=== PATIENT | female | born 1965 | race Hispanic/Latino ===

== ENCOUNTER 2017-06-10 04:30 | Inpatient (IN) | payer BC ==
--- NOTE | 2017-06-10 04:45 | ED PDOC ---
Arrival/HPI - General Time Seen by Provider: 06/10/17 04:31 Historian: Patient - History of Present Illness Narrative History of Present Illness (Text): 06/10/17 04:41 Courtney Schmidt is a 52 year old female, whose past medical history includes gastritis and small bowel obstruction, who presents to the emergency department complaining of abdominal pain and vomiting for 24 hours. Patient notes she has experienced these symptoms for a couple of years. Patient denies any fever, chills, chest pain, shortness of breath, diarrhea, back pain, neck pain, headache, dizziness, or any other complaints. Time/Duration: 24 hours Symptom Onset: Gradual Symptom Course: Unchanged Activities at Onset: Light Context: Home Past Medical History - Provider Review Nursing Documentation Reviewed: Yes - Tetanus Immunization Tetanus Immunization: Unknown - Cardiac Hx Cardiac Disorders: No Hx Pacemaker: No - Pulmonary Hx Asthma: Yes - Neurological Hx Paralysis: No - HEENT Other/Comment: pt communicates by writing on paper, impaired speech, pt uses a ttd phone to communicate - Hematological/Oncological Hx Blood Transfusions: No Hx Blood Transfusion Reaction: No - Musculoskeletal/Rheumatological Hx Musculoskeletal Disorders: Yes (CEREBRAL PALSY) - Gastrointestinal Hx Gastrointestinal Disorders: Yes Hx Gastroesophageal Reflux: Yes - Psychiatric Hx Emotional Abuse: No Hx Physical Abuse: No Hx Substance Use: No - Surgical History Other/Comment: abdominal - Anesthesia Hx Anesthesia Reactions: No Hx Malignant Hyperthermia: No - Suicidal Assessment Feels Threatened In Home Enviroment: No Family/Social History - Physician Review Nursing Documentation Reviewed: Yes Family/Social History: Unknown Family HX Smoking Status: Never Smoked Hx Alcohol Use: No Hx Substance Use: No Hx Substance Use Treatment: No Allergies/Home Meds Allergies/Adverse Reactions: Allergies omeprazole Adverse Reaction (Verified 06/10/17 05:06) SHORTNESS OF BREATH PT REPORTS HEADACHE AND SOB PT TAKES THIS DAILY Home Medications: Home Meds Medication Instructions Recorded Confirmed Multivitamin [Multi Vitamins] 1 tab PO DAILY 12/26/11 06/10/17 Ipratropium 0.02% [Ipratropium 0.5 mg IH PRN PRN 07/20/15 06/10/17 Flushing 2.5 Ml] Ranitidine HCl [Zantac 150] 150 mg PO BID 07/20/15 06/10/17 Review of Systems - Physician Review All systems were reviewed & negative as marked: Yes - Review of Systems Constitutional: Normal Eyes: Normal ENT: Normal Respiratory: Normal. absent: SOB, Cough Cardiovascular: Normal. absent: Chest Pain Gastrointestinal: Abdominal Pain, Vomiting. absent: Diarrhea Genitourinary Female: Normal. absent: Dysuria, Frequency, Hematuria, Urine Output Changes Musculoskeletal: Normal. absent: Back Pain, Neck Pain Skin: Normal. absent: Rash Neurological: Normal Endocrine: Normal Hemo/Lymphatic: Normal Psychiatric: Normal Physical Exam Vital Signs Temp Pulse Resp BP Pulse Ox 06/10/17 11:30 85 18 118/70 98 06/10/17 09:45 88 18 111/67 97 06/10/17 07:30 94 H 18 118/72 97 06/10/17 05:00 97.9 F 93 H 88 H 110/77 97 - Systems Exam Head: Present: Atraumatic, Normocephalic Pupils: Present: PERRL Extroacular Muscles: Present: EOMI Conjunctiva: Present: Normal Mouth: Present: Moist Mucous Membranes Neck: Present: Normal Range of Motion Respiratory/Chest: Present: Clear to Auscultation, Good Air Exchange. No: Respiratory Distress, Accessory Muscle Use Cardiovascular: Present: Regular Rate and Rhythm, Normal S1, S2. No: Murmurs Abdomen: Present: Tenderness (all quadrants). No: Peritoneal Signs Back: Present: Normal Inspection Upper Extremity: Present: Normal Inspection. No: Cyanosis, Edema Lower Extremity: Present: Normal Inspection. No: Edema Neurological: Present: GCS=15, CN II-XII Intact, Speech Normal Skin: Present: Warm, Dry, Normal Color. No: Rashes Psychiatric: Present: Alert, Oriented x 3, Normal Insight, Normal Concentration Medical Decision Making ED Course and Treatment: 06/10/17 04:45 Impression: 51 year old female presents to the emergency department complaining of abdominal pain and vomiting for 24 hours. Plan: -- EKG -- CT Abd/Pelvis -- Labs -- Blood Culture -- Urine Culture -- Urinalysis -- Lipase -- Amylase -- Cardiac Enzymes -- Reassess and disposition Prior Visits: Notes and results from previous visits were reviewed. Patient was last seen in the emergency department on 09/18/15 for nausea and vomiting for two days. Patient was discharged. Progress Notes: - Lab Interpretations Microbiology Results: Microbiology Results 06/10/17 05:30 Blood-Venous Blood Culture - Preliminary NO GROWTH AFTER 3 DAYS 06/10/17 05:00 Blood-Venous Blood Culture - Preliminary NO GROWTH AFTER 3 DAYS 06/10/17 10:30 Urine,Clean Catch Urine Culture - Final No Growth (<1,000 CFU/ML) Lab Results: 06/10/17 04:45 06/10/17 04:45 Lab Results 06/10/17 09:30: Urine Color Yellow, Urine Appearance Clear, Urine pH 7.5, Ur Specific [place] 1.015, Urine Protein Negative, Urine Glucose (UA) Negative, Urine Ketones Trace H, Urine Blood Negative, Urine Nitrate Negative, Urine Bilirubin Negative, Urine Urobilinogen 0.2, Ur Leukocyte Esterase Negative 06/10/17 07:49: pO2 235 H, VBG pH 7.42, VBG pCO2 46.0, VBG HCO3 29.8 H, VBG Total CO2 31.2 H, VBG O2 Sat (Calc) 100.0 H, VBG Base Excess 4.5 H, VBG Potassium 3.7, Glucose 114 H, Lactate 0.9, FiO2 21.0, Sodium 138.0, Chloride 107.0, Venous Blood Potassium 3.7 06/10/17 04:45: Sodium 142, Potassium 4.0, Chloride 103, Carbon Dioxide 27, Anion Gap 16, BUN 17, Creatinine 0.5 L, Est GFR ( Amer) > 60, Est GFR ( Non-Af Amer) > 60, Random Glucose 138 H, Calcium 10.1, Total Bilirubin 0.4, AST 31, ALT 34, Alkaline Phosphatase 133 H, Lactate Dehydrogenase 493, Total Creatine Kinase 56, Troponin I < 0.01, Total Protein 8.0, Albumin 4.6, Globulin 3.4, Albumin/Globulin Ratio 1.4, Amylase 82, Lipase 309 H 06/10/17 04:45: PT 11.0, INR 0.97, APTT 28.1 06/10/17 04:45: WBC 14.0 H D, RBC 4.92, Hgb 15.8, Hct 46.5, MCV 94.5, MCH 32.1, MCHC 34.0, RDW 12.4, Plt Count 274, MPV 10.5, Gran % 92.5 H, Lymph % (Auto) 5.1 L, [place] % (Auto) 2.0, Eos % (Auto) 0.1 L, Baso % (Auto) 0.3, Gran # 12.94 H, Lymph # (Auto) 0.7 L, [place] # (Auto) 0.3, Eos # (Auto) 0.0, Baso # (Auto) 0.04, Neutrophils % (Manual) 88 H, Band Neutrophils % 2, Lymphocytes % (Manual) 9 L, Monocytes % (Manual) TEST NOT PERFORMED, Basophils % (Manual) 1, Platelet Evaluation Normal - RAD Interpretation Radiology Orders: 06/10/17 04:43 ABD & PELVIS W/O PO OR IV CONT [CT] Stat - Medication Orders Current Medication Orders: Albuterol/Ipratropium (Duoneb 3 Mg/0.5 Mg (3 Ml) Ud) 3 ml IH Q6H PRN PRN Reason: Shortness of Breath Bisacodyl (Dulcolax) 10 mg RC BID PRN PRN Reason: Constipation Heparin Sodium (Porcine) (Heparin) 5,000 units SC Q12 [facility] PRN Reason: Protocol Last Admin: 06/13/17 10:55 Dose: 5,000 units Subcutaneous Administrations Document 06/13/17 10:55 MCV (Rec: 06/13/17 10:55 MCV [facility]-[id number]) Charges for Administration # of Subcutaneous Administrations 1 Magnesium Hydroxide (Milk Of Magnesia) 30 ml PO DAILY PRN PRN Reason: Constipation Ondansetron HCl (Zofran Inj) 4 mg IVP Q4 PRN PRN Reason: Nausea/Vomiting Last Admin: 06/10/17 14:39 Dose: 4 mg IVP Administration Document 06/10/17 14:39 Y (Rec: 06/10/17 14:39 [id number] Charges for Administration # of IVP Administrations 1 Pantoprazole Sodium (Protonix Ec Tab) 20 mg PO 0600 [facility] Polyethylene Glycol (Miralax) 17 gm PO BID [facility] Last Admin: 06/13/17 10:55 Dose: 17 gm Discontinued Medications Famotidine (Pepcid) 40 mg IVP DAILY [facility] Last Admin: 06/11/17 09:26 Dose: Famotidine (Pepcid) 20 mg PO 1000,2200 [facility] Last Admin: 06/11/17 21:17 Dose: 20 mg Sodium Chloride (Sodium Chloride 0.9%) 1,000 mls @ 80 mls/hr IV .[id number] [facility] Last Admin: 06/10/17 04:59 Dose: 80 mls/hr eMAR Start Stop Document 06/10/17 04:59 JOL (Rec: 06/10/17 04:59 JOL [id number]) Intravenous Solution Start Date 06/10/17 Start Time 04:59 Sodium Chloride (Sodium Chloride 0.9%) 1,000 mls @ 120 mls/hr IV .[id number] [facility] Last Admin: 06/11/17 09:50 Dose: 120 mls/hr eMAR Start Stop Document 06/11/17 09:50 EP (Rec: 06/11/17 09:50 EP [facility]-[id number]) Intravenous Solution Start Date 06/11/17 Start Time 09:50 Ampicillin Sodium/Sulbactam (Sodium 3 gm/ Sodium Chloride) 100 mls @ 200 mls/ hr IVPB Q6 [facility] PRN Reason: Protocol Last Admin: 06/11/17 05:24 Dose: 200 mls/hr eMAR Start Stop Document 06/11/17 05:24 [employer]ER[employer] (Rec: 06/11/17 05:24 CREATIVE [employer]S THERAPIST [id number]) Intravenous Solution Start Date 06/11/17 Start Time 05:24 End Date 06/11/17 Ketorolac Tromethamine (Toradol) 15 mg IVP Q6H PRN PRN Reason: Pain, moderate (4-7) Last Admin: 06/10/17 14:15 Dose: 15 mg [facility] Pain Assessment Document 06/10/17 14:15 Y (Rec: 06/10/17 14:15 [id number]) Pain Reassessment Is this a pain reassessment? No Sleep Is patient sleeping during reassessment? No Presence of Pain Presence of Pain Yes Pain Scale Used Pain Scale Used Numeric Location Pain Location Body Site Abdomen Description Intensity of Pain at present 10 IVP Administration Document 06/10/17 14:15 Y (Rec: 06/10/17 14:15 [id number]) Charges for Administration # of IVP Administrations 1 Re-Assess: ROBERT Pain Assessment Document 06/10/17 15:15 Y (Rec: 06/10/17 20:59 [id number] Pain Reassessment Is this a pain reassessment? Yes Sleep Is patient sleeping during reassessment? Yes Magnesium Citrate (Citrate Of Mag) 300 ml PO ONCE ONE Stop: 06/12/17 07:05 Last Admin: 06/12/17 08:34 Dose: 300 ml Magnesium Citrate (Citrate Of Mag) 300 ml PO ONCE ONE Stop: 06/13/17 10:01 Last Admin: 06/13/17 10:55 Dose: Not Given Non-Admin Reason: Patient Refused Morphine Sulfate (Morphine) 2 mg IVP STAT STA Stop: 06/10/17 04:49 Last Admin: 06/10/17 04:59 Dose: 2 mg MAR Pain Assessment Document 06/10/17 04:59 JOL (Rec: 06/10/17 05:00 JOL [id number]) Pain Reassessment Is this a pain reassessment? No Sleep Is patient sleeping during reassessment? No Presence of Pain Presence of Pain Yes Pain Scale Used Pain Scale Used Numeric Location Pain Location Body Site Abdomen Description Intensity of Pain at present 8 Pain Behavior Irritability Restlessness Facial Grimacing Aggravating Factors ADL's Changing Position IVP Administration Document 06/10/17 04:59 JOL (Rec: 06/10/17 05:00 JOL [id number]) Charges for Administration # of IVP Administrations 1 Morphine Sulfate (Morphine) 4 mg IVP STAT STA Stop: 06/10/17 07:50 Last Admin: 06/10/17 08:03 Dose: 4 mg MAR Pain Assessment Document 06/10/17 08:03 [facility] (Rec: 06/10/17 08:03 [facility] [id number]) Pain Reassessment Is this a pain reassessment? Yes Sleep Is patient sleeping during reassessment? No Presence of Pain Presence of Pain Yes Pain Scale Used Pain Scale Used Numeric Location Pain Location Body Site Abdomen Description Description Constant Intensity of Pain at present 6 Pain Behavior Irritability Aggravating Factors None Alleviating Factors/Management Medication Techniques Alleviating Factors Medication IVP Administration Document 06/10/17 08:03 [facility] (Rec: 06/10/17 08:03 [facility] [id number]) Charges for Administration # of IVP Administrations 1 Ondansetron HCl (Zofran Inj) 4 mg IVP STAT STA Stop: 06/10/17 04:49 Last Admin: 06/10/17 04:59 Dose: 4 mg IVP Administration Document 06/10/17 04:59 JOL (Rec: 06/10/17 04:59 JOL [id number]) Charges for Administration # of IVP Administrations 1 Ondansetron HCl (Zofran Inj) 4 mg IVP STAT STA Stop: 06/10/17 11:17 Last Admin: 06/10/17 11:33 Dose: 4 mg IVP Administration Document 06/10/17 11:33 [facility] (Rec: 06/10/17 11:33 [facility] [id number]) Charges for Administration # of IVP Administrations 1 Pantoprazole Sodium (Protonix Ec Tab) 40 mg PO 0600 [facility] Last Admin: 06/13/17 06:15 Dose: 40 mg Polyethylene Glycol (Miralax) 17 gm PO BID [facility] Last Admin: 06/10/17 12:13 Dose: - Transfer of Care Patient signed out to Dr:: marcel ct scan and dispo - Scribe Statement The provider has reviewed the documentation as recorded by the Scribe Documented by Anaya Hurtado acting as a scribe for Luis Miguel Perez MD. Disposition/Present on Arrival - Present on Arrival Any Indicators Present on Arrival: No History of DVT/PE: No History of Uncontrolled Diabetes: No Urinary Catheter: No History Surgical Site Infection Following: None - Disposition Have Diagnosis and Disposition been Completed?: Yes Diagnosis: Small bowel obstruction, Nausea & vomiting, Abdominal pain Disposition: HOSPITALIZED Disposition Time: 07:00 Patient Problems: Current Active Problems Problem Status Onset Abdominal pain Acute Nausea & vomiting Acute Small bowel obstruction Acute Condition: GOOD
[2017-06-10] MEDS ORDERED: Morphine 2 mg/ml ISec IVP STA (04:48)
[2017-06-10] MEDS ORDERED: Sodium Chloride 0.9% 1,000 ML IV SCH (05:00)
[2017-06-10 05:09] LABS: BASO # 0.04 K/mm3 (0.0-2.0); BASO % 0.3 % (0.0-3.0); EOS % 0.1 % (1.5-5.0); GRAN # 12.94 (1.4-6.5); GRAN % 92.5 % (50.0-68.0); HEMOGLOBIN 15.8 g/dL (12.0-16.0); LYMPH # 0.7 (1.2-3.4); LYMPH % 5.1 % (22.0-35.0); MEAN CELL VOLUME 94.5 fl (80.0-105.0); MEAN CORPUSCULAR HEMOGLOBIN 32.1 pg (25.0-35.0); MEAN PLATELET VOLUME 10.5 fl (7.0-11.0); MONO # 0.3 (0.1-0.6); PLATELET COUNT 274 10^3/uL (120.0-450.0); RBC 4.92 10^6/uL (3.5-6.1); RED CELL DISTRIBUTION WIDTH 12.4 % (11.5-14.5)
[2017-06-10 05:16] LABS: ALB/GLOB RATIO 1.4 (1.1-1.8); ALBUMIN 4.6 g/dL (3.0-4.8); ALT/SGPT 34 U/L (7-56); AMYLASE 82 U/L (35-125); AST/SGOT 31 U/L (14-36); BLOOD UREA NITROGEN 17 mg/dL (7-21); CALCIUM 10.1 mg/dL (8.4-10.5); GFR AFRICAN-AMERICAN > 60; GFR NON-AFRICAN AMERICAN > 60; LIPASE 309 U/L (23-300)
[2017-06-10 05:18] LABS: INR 0.97 (0.93-1.08); PARTIAL THROMBOPLASTIN TIME 28.1 Seconds (25.1-36.5)
[2017-06-10 05:26] LABS: TROPONIN I < 0.01 ng/mL
[2017-06-10 06:47] LABS: BAND 2 % (0-2); BASOPHIL 1 % (0.0-1.0); LYMPHOCYTE 9 % (22.0-35.0); NEUTROPHIL 88 % (50.0-70.0); PLATELET ESTIMATE NORMAL (NORMAL)
--- NOTE | 2017-06-10 07:23 | ED PDOC ---
Physical Exam Vital Signs Reviewed: Yes Vital Signs Temp Pulse Resp BP Pulse Ox 06/10/17 09:45 88 18 111/67 97 06/10/17 07:30 94 H 18 118/72 97 06/10/17 05:00 97.9 F 93 H 88 H 110/77 97 Temperature: Afebrile Blood Pressure: Normal Pulse: Regular Respiratory Rate: Normal Appearance: Positive for: Well-Appearing Pain Distress: None Mental Status: Positive for: Alert and Oriented X 3 - Systems Exam Head: Present: Atraumatic, Normocephalic Pupils: Present: Other (disconjugate gaze; no photophobia, sclera anicteric, no nystagmus) Extroacular Muscles: Present: EOMI Conjunctiva: Present: Normal Ears: Present: Normal Mouth: Present: Other (mild dry oral mucosa, fair dentitions, no drooling/ stridor) Pharnyx: Present: Normal Nose (External): Present: Atraumatic Nose (Internal): Present: Normal Inspection Neck: Present: Normal Range of Motion, Trachea Midline. No: MIDLINE TENDERNESS Respiratory/Chest: Present: Clear to Auscultation, Good Air Exchange Cardiovascular: Present: Regular Rate and Rhythm, Normal S1, S2. No: Murmurs Abdomen: Present: Normal Bowel Sounds, Other (mild decr BS; + diffuse mid abd tenderness, no masses/rebound/guarding/rigidity, no portillo's sign, no mcburney' s point tenderness) Back: Present: Normal Inspection. No: Midline Tenderness Upper Extremity: Present: Normal Inspection, Normal ROM, NORMAL PULSES, Neurovascularly Intact, Capillary Refill < 2s Lower Extremity: Present: Normal Inspection, NORMAL PULSES, Normal ROM, Neurovascularly Intact, Capillary Refill < 2 s Neurological: Present: GCS=15, CN II-XII Intact, Speech Normal Skin: Present: Warm, Normal Color, Other (cap refill ~ 1 sec, no ulcerations, no petechiae) Psychiatric: Present: Alert, Oriented x 3 Medical Decision Making ED Course and Treatment: 06/10/17 07:19 Patient has been endorsed to me by Dr. Perez. Patient currently awaiting Abd/ Pelvis CT results and will be dispositioned accordingly. 06/10/2017 08:16 Abd/Pelvis CT IMPRESSION: Distal small bowel obstruction. Fluid-filled loops of distended small bowel with mesenteric edema. Bowel ischemia is not excluded. Dictator: Jess Saunders MD 06/10/17 08:[address] Jorge, surgical consult, who has been made aware of patient's medical condition and will evaluate patient at bedside. 06/10/17 11:19 Dr rajput team evaluated patient, agrees with admission, would like medicine team to admit patient I spoke to Dr Guillory, hospitalists plumbing and heating contractor, made aware, agrees with admission pt is made aware of her medical results pt agrees with admission Re-evaluation Time: 11:22 Reassessment Condition: Improving,but remains with symptoms - Lab Interpretations Lab Results: 06/10/17 04:45 06/10/17 04:45 Lab Results 06/10/17 09:30: Urine Color Yellow, Urine Appearance Clear, Urine pH 7.5, Ur Specific [place] 1.015, Urine Protein Negative, Urine Glucose (UA) Negative, Urine Ketones Trace H, Urine Blood Negative, Urine Nitrate Negative, Urine Bilirubin Negative, Urine Urobilinogen 0.2, Ur Leukocyte Esterase Negative 06/10/17 07:49: pO2 235 H, VBG pH 7.42, VBG pCO2 46.0, VBG HCO3 29.8 H, VBG Total CO2 31.2 H, VBG O2 Sat (Calc) 100.0 H, VBG Base Excess 4.5 H, VBG Potassium 3.7, Glucose 114 H, Lactate 0.9, FiO2 21.0, Sodium 138.0, Chloride 107.0, Venous Blood Potassium 3.7 06/10/17 04:45: Sodium 142, Potassium 4.0, Chloride 103, Carbon Dioxide 27, Anion Gap 16, BUN 17, Creatinine 0.5 L, Est GFR ( Amer) > 60, Est GFR ( Non-Af Amer) > 60, Random Glucose 138 H, Calcium 10.1, Total Bilirubin 0.4, AST 31, ALT 34, Alkaline Phosphatase 133 H, Lactate Dehydrogenase 493, Total Creatine Kinase 56, Troponin I < 0.01, Total Protein 8.0, Albumin 4.6, Globulin 3.4, Albumin/Globulin Ratio 1.4, Amylase 82, Lipase 309 H 06/10/17 04:45: PT 11.0, INR 0.97, APTT 28.1 06/10/17 04:45: WBC 14.0 H D, RBC 4.92, Hgb 15.8, Hct 46.5, MCV 94.5, MCH 32.1, MCHC 34.0, RDW 12.4, Plt Count 274, MPV 10.5, Gran % 92.5 H, Lymph % (Auto) 5.1 L, [place] % (Auto) 2.0, Eos % (Auto) 0.1 L, Baso % (Auto) 0.3, Gran # 12.94 H, Lymph # (Auto) 0.7 L, [place] # (Auto) 0.3, Eos # (Auto) 0.0, Baso # (Auto) 0.04, Neutrophils % (Manual) 88 H, Band Neutrophils % 2, Lymphocytes % (Manual) 9 L, Monocytes % (Manual) TEST NOT PERFORMED, Basophils % (Manual) 1, Platelet Evaluation Normal I have reviewed the lab results: Yes Interpretation: Abnormal lab values (mildly elevated WBCS, lipase) - RAD Interpretation Narrative RAD Interpretations (Text): 06/10/17 11:22 CT Scan ABD PELVIS W/O PO OR IV CONT Exam Date: 06/10/17 This imaging exam was performed at [facility] (Formerly [facility])[3] ADDENDUM Addendum created by Jess Saunders MD on 06/10/2017 8:34:29 AM EDT THIS REPORT CONTAINS FINDINGS THAT MAY BE CRITICAL TO PATIENT CARE. The findings were verbally communicaated via telephone conference with Dr Govea at 8:26 AM EDT on 06/10/2017. The findings were acknowledged and understood. Additional history was provided. Patient has recurrent small bowel obstructions. Prior surgical history is unknown. Question possibility of closed loop obstruction. Surgical consult is recommended. Right lower lobe ground glass infiltrate. Possible pneumonia. The patient has elevated pancreatic enzymes. The pancreas is diffusely prominent compared to the prior study allowing for lack of intravenous contrast. No significant peripancreatic inflammatory stranding is noted. Possible mild pancreatitis. Initial report created on 06/10/2017 8:16:19 AM EDT EXAM: CT Abdomen and Pelvis Without Intravenous Contrast CLINICAL HISTORY: 51 years old, female; Pain; Abdominal pain; Generalized; Additional info: Abd pain TECHNIQUE: Axial computed tomography images of the abdomen and pelvis without intravenous contrast. All CT scans at this facility use one or more dose reduction techniques, viz.: automated exposure control; ma/kV adjustment per patient size (including targeted exams where dose is matched to indication; i.e. head); or iterative reconstruction technique. Coronal and sagittal reformatted images were created and reviewed. COMPARISON: CT - ABD PELVIS IV CONTRAST ONLY 2015-09-17 18:43 FINDINGS: Lower thorax: No acute findings. ABDOMEN: Liver: The liver is within normal limits for this noncontrast study. Gallbladder and bile ducts: Unremarkable. No calcified stones. No ductal dilation. Pancreas: Unremarkable. No ductal dilation. Spleen: Unremarkable. No splenomegaly. Adrenals: Unremarkable. No mass. Kidneys and ureters: Unremarkable. No obstructing stones. No hydronephrosis. Stomach and bowel: There are moderately distended fluid-filled loops of mid to distal small bowel in the lower abdomen and pelvis. There is adjacent small bowel mesenteric stranding and fluid secondary to edema. Decompressed distal small bowel loops are present. Appendix: Not visualized. PELVIS: Bladder: Unremarkable. No stones. Reproductive: Unremarkable as visualized. ABDOMEN and PELVIS: Intraperitoneal space: No free air. No significant fluid collection. Bones/joints: No acute fracture. No dislocation. Soft tissues: Unremarkable. Vasculature: Unremarkable. No abdominal aortic aneurysm. Lymph nodes: Unremarkable. No enlarged lymph nodes. IMPRESSION: Distal small bowel obstruction. Fluid-filled loops of distended small bowel with mesenteric edema. Bowel ischemia is not excluded. Addendum Dictated By: Jess Saunders MD Addendum Dictated Date Time:06/10/17 Addendum Signed by:Jess Saunders MD Addendum signed Date Time: 06/10/17833 Addendum Transcribed By: ANDREAS Addendum Transcribed Date Time: 06/10/17 BITA/DK EXAM: CT Abdomen and Pelvis Without Intravenous Contrast CLINICAL HISTORY: 51 years old, female; Pain; Abdominal pain; Generalized; Additional info: Abd pain TECHNIQUE: Axial computed tomography images of the abdomen and pelvis without intravenous contrast. All CT scans at this facility use one or more dose reduction techniques, viz.: automated exposure control; ma/kV adjustment per patient size (including targeted exams where dose is matched to indication; i.e. head); or iterative reconstruction technique. Coronal and sagittal reformatted images were created and reviewed. COMPARISON: CT - ABD PELVIS IV CONTRAST ONLY 2015-09-17 18:43 FINDINGS: Lower thorax: No acute findings. ABDOMEN: Liver: The liver is within normal limits for this noncontrast study. Gallbladder and bile ducts: Unremarkable. No calcified stones. No ductal dilation. Pancreas: Unremarkable. No ductal dilation. Spleen: Unremarkable. No splenomegaly. Adrenals: Unremarkable. No mass. Kidneys and ureters: Unremarkable. No obstructing stones. No hydronephrosis. Stomach and bowel: There are moderately distended fluid-filled loops of mid to distal small bowel in the lower abdomen and pelvis. There is adjacent small bowel mesenteric stranding and fluid secondary to edema. Decompressed distal small bowel loops are present. Appendix: Not visualized. PELVIS: Bladder: Unremarkable. No stones. Reproductive: Unremarkable as visualized. ABDOMEN and PELVIS: Intraperitoneal space: No free air. No significant fluid collection. Bones/joints: No acute fracture. No dislocation. Soft tissues: Unremarkable. Vasculature: Unremarkable. No abdominal aortic aneurysm. Lymph nodes: Unremarkable. No enlarged lymph nodes. IMPRESSION: Distal small bowel obstruction. Fluid-filled loops of distended small bowel with mesenteric edema. Bowel ischemia is not excluded. Radiology Orders: 06/10/17 04:43 ABD & PELVIS W/O PO OR IV CONT [CT] Stat Scrap Wheeler: Radiologist - Medication Orders Current Medication Orders: Sodium Chloride (Sodium Chloride 0.9%) 1,000 mls @ 80 mls/hr IV .[id number] [facility] Last Admin: 06/10/17 04:59 Dose: 80 mls/hr eMAR Start Stop Document 06/10/17 04:59 JOL (Rec: 06/10/17 04:59 JOL [id number]) Intravenous Solution Start Date 06/10/17 Start Time 04:59 Ketorolac Tromethamine (Toradol) 15 mg IVP Q6H PRN PRN Reason: Pain, moderate (4-7) Polyethylene Glycol (Miralax) 17 gm PO BID [facility] Discontinued Medications Morphine Sulfate (Morphine) 2 mg IVP STAT STA Stop: 06/10/17 04:49 Last Admin: 06/10/17 04:59 Dose: 2 mg MAR Pain Assessment Document 06/10/17 04:59 JOL (Rec: 06/10/17 05:00 [id number] [id number]) Pain Reassessment Is this a pain reassessment? No Sleep Is patient sleeping during reassessment? No Presence of Pain Presence of Pain Yes Pain Scale Used Pain Scale Used Numeric Location Pain Location Body Site Abdomen Description Intensity of Pain at present 8 Pain Behavior Irritability Restlessness Facial Grimacing Aggravating Factors ADL's Changing Position IVP Administration Document 06/10/17 04:59 JOL (Rec: 06/10/17 05:00 JOL [id number]) Charges for Administration # of IVP Administrations 1 Morphine Sulfate (Morphine) 4 mg IVP STAT STA Stop: 06/10/17 07:50 Last Admin: 06/10/17 08:03 Dose: 4 mg MAR Pain Assessment Document 06/10/17 08:03 [facility] (Rec: 06/10/17 08:03 [facility] [id number]) Pain Reassessment Is this a pain reassessment? Yes Sleep Is patient sleeping during reassessment? No Presence of Pain Presence of Pain Yes Pain Scale Used Pain Scale Used Numeric Location Pain Location Body Site Abdomen Description Description Constant Intensity of Pain at present 6 Pain Behavior Irritability Aggravating Factors None Alleviating Factors/Management Medication Techniques Alleviating Factors Medication IVP Administration Document 06/10/17 08:03 [facility] (Rec: 06/10/17 08:03 [facility] [id number]) Charges for Administration # of IVP Administrations 1 Ondansetron HCl (Zofran Inj) 4 mg IVP STAT STA Stop: 06/10/17 04:49 Last Admin: 06/10/17 04:59 Dose: 4 mg IVP Administration Document 06/10/17 04:59 JOL (Rec: 06/10/17 04:59 JOL [id number]) Charges for Administration # of IVP Administrations 1 - Scribe Statement The provider has reviewed the documentation as recorded by the Carlee Munoz Provider Scribe Attestation: All medical record entries made by the Scribpedro were at my direction and personally dictated by me. I have reviewed the chart and agree that the record accurately reflects my personal performance of the history, physical exam, medical decision making, and the department course for this patient. I have also personally directed, reviewed, and agree with the discharge instructions and disposition. Disposition/Present on Arrival - Present on Arrival Any Indicators Present on Arrival: No History of DVT/PE: No History of Uncontrolled Diabetes: No Urinary Catheter: No History of Decub. Ulcer: No History Surgical Site Infection Following: None - Disposition Have Diagnosis and Disposition been Completed?: Yes Diagnosis: Small bowel obstruction, Nausea & vomiting, Abdominal pain Disposition: HOSPITALIZED Disposition Time: 11:23 Patient Plan: Admission Condition: GOOD Forms: [employer] (Georgian)
[2017-06-10] MEDS ORDERED: Morphine 4 mg/ml ISec IVP STA (07:49)
--- NOTE | 2017-06-10 08:16 | CT ---
EXAM: CT Abdomen and Pelvis Without Intravenous Contrast CLINICAL HISTORY: 51 years old, female; Pain; Abdominal pain; Generalized; Additional info: Abd pain TECHNIQUE: Axial computed tomography images of the abdomen and pelvis without intravenous contrast. All CT scans at this facility use one or more dose reduction techniques, viz.: automated exposure control; ma/kV adjustment per patient size (including targeted exams where dose is matched to indication; i.e. head); or iterative reconstruction technique. Coronal and sagittal reformatted images were created and reviewed. COMPARISON: CT - ABD PELVIS IV CONTRAST ONLY 2015-09-17 18:43 FINDINGS: Lower thorax: No acute findings. ABDOMEN: Liver: The liver is within normal limits for this noncontrast study. Gallbladder and bile ducts: Unremarkable. No calcified stones. No ductal dilation. Pancreas: Unremarkable. No ductal dilation. Spleen: Unremarkable. No splenomegaly. Adrenals: Unremarkable. No mass. Kidneys and ureters: Unremarkable. No obstructing stones. No hydronephrosis. Stomach and bowel: There are moderately distended fluid-filled loops of mid to distal small bowel in the lower abdomen and pelvis. There is adjacent small bowel mesenteric stranding and fluid secondary to edema. Decompressed distal small bowel loops are present. Appendix: Not visualized. PELVIS: Bladder: Unremarkable. No stones. Reproductive: Unremarkable as visualized. ABDOMEN and PELVIS: Intraperitoneal space: No free air. No significant fluid collection. Bones/joints: No acute fracture. No dislocation. Soft tissues: Unremarkable. Vasculature: Unremarkable. No abdominal aortic aneurysm. Lymph nodes: Unremarkable. No enlarged lymph nodes. IMPRESSION: Distal small bowel obstruction. Fluid-filled loops of distended small bowel with mesenteric edema. Bowel ischemia is not excluded.
[2017-06-10 08:25] LABS: VENOUS BLOOD GAS BASE EXCESS 4.5 mmol/L (0.0-2.0); VENOUS BLOOD GAS PO2 235 mm/Hg (30-55); VENOUS BLOOD PH 7.42 (7.32-7.43)
[2017-06-10 09:49] LABS: PH,URINE 7.5 (4.7-8.0); URINE BILIRUBIN NEGATIVE (NEGATIVE); URINE BLOOD NEGATIVE (NEGATIVE); URINE GLUCOSE (UA) NEGATIVE (NEGATIVE); URINE LEUKOCYTE ESTERASE NEGATIVE Leu/uL (NEGATIVE); URINE PROTEIN NEGATIVE mg/dL (<30 mg/dL); URINE UROBILINOGEN 0.2 E.U./dL (<1 E.U./dL)
[2017-06-10 09:50] LABS: URINE APPEARANCE CLEAR (CLEAR); URINE COLOR YELLOW (YELLOW)
[2017-06-10] MEDS ORDERED: POLYETHYLENE GLYCOL 3350 17 GM/Dose PACKET PO SCH (11:15)
--- NOTE | 2017-06-10 11:20 | CP.PCM.HP ---
<Zulma Sethi - Last Filed: 06/10/17 14:36> History of Present Illness - History of Present Illness History of Present Illness: Please note HPI limited as patient is nonverbal and communicates by writing down her answers on paper HPI: 51F PMHx CP, SBO, colon polyps, overactive bladder, asthma, gastric intestinal metaplasia, +H. Pylori, chronic gastritis presents to ED complaining of nausea/vomiting for 1 day. She states she began vomiting the day before and vomited 20 times nonbloody nonbilious stomach contents. She took aspirin and omeprazole at home, with little relief. Her last meal was at 6pm the night earlier and her last BM was the day before which she described as small, firm, and hard. She stated that she is worried about this and frustrated because she has been dealing with this problem for a long time and has missed a lot of work. She states that she has a hx of gastritis and has had issues with constipation, partial bowel obstruction, and vomiting three times in the past. She has been evaluated by gastroenterology and had endoscopic disimpactions for this problem in the past. ROS: limited- denied fever, chills, chest pain, SOB, abd pain, numbness/ tingling. Admitted to nausea and vomiting and constipation PMHx: cerebral palsy, history of colon polyps, small bowel obstruction ( hospitalized at [facility]), overactive bladder, asthma, gastric intestinal metaplasia, positive H. pylori (not treated, patient refused), chronic gastritis. PSurgHx: abd surgery 2016 (patient unable to describe procedure) PProcedure: Colonoscopy 2014: colon polyps that were hyperplastic and adenomatous. Meds: pls see chart ALL: omeprazole SocHx: Denies smoking, EtOH or drug use, Lives with mother FamHx: noncontributory PMD: [place] Present on Admission - Present on Admission Any Indicators Present on Admission: No Review of Systems - Review of Systems Review of Systems: Limited as patient is aphasic - Constitutional Constitutional: As Per HPI. absent: Chills, Fever - EENT Ears: As Per HPI. absent: Dizziness - Cardiovascular Cardiovascular: As Per HPI. absent: Chest Pain, Dyspnea - Respiratory Respiratory: As Per HPI. absent: Cough, Dyspnea - Gastrointestinal Gastrointestinal: As Per HPI, Constipation, Nausea, Vomiting. absent: Abdominal Pain Additional comments: hard stool - Musculoskeletal Musculoskeletal: As Per HPI. absent: Numbness, Tingling - Integumentary Integumentary: As Per HPI. absent: Dry Skin - Neurological Neurological: As Per HPI, Weakness Past Patient History - Tetanus Immunizations Tetanus Immunization: Unknown - Past Social History Smoking Status: Never Smoked - CARDIAC Hx Cardiac Disorders: No Hx Pacemaker: No - PULMONARY Hx Asthma: Yes - NEUROLOGICAL Hx Neurological Disorder: No Hx Paralysis: No - HEENT Other/Comment: pt communicates by writing on paper, impaired speech, pt uses a ttd phone to communicate - RENAL Hx Chronic Kidney Disease: No - ENDOCRINE/METABOLIC Hx Endocrine Disorders: No - HEMATOLOGICAL/ONCOLOGICAL Hx Blood Disorders: No Hx Blood Transfusions: No Hx Blood Transfusion Reaction: No - INTEGUMENTARY Hx Dermatological Problems: No - MUSCULOSKELETAL/RHEUMATOLOGICAL Hx Musculoskeletal Disorders: No (CEREBRAL PALSY) - GASTROINTESTINAL Hx Gastrointestinal Disorders: Yes Hx Gastroesophageal Reflux: Yes - GENITOURINARY/GYNECOLOGICAL Hx Genitourinary Disorders: No - PSYCHIATRIC Hx Psychophysiologic Disorder: No Hx Emotional Abuse: No Hx Physical Abuse: No Hx Substance Use: No - SURGICAL HISTORY Hx Surgeries: No Other/Comment: abdominal - ANESTHESIA Hx Anesthesia Reactions: No Hx Malignant Hyperthermia: No Meds Allergies/Adverse Reactions: Allergies Allergy/AdvReac Type Severity Reaction Status Date / Time omeprazole AdvReac SHORTNESS Verified 06/10/17 05:06 OF BREATH Physical Exam - Constitutional Appears: Chronically Ill - Head Exam Head Exam: ATRAUMATIC, NORMAL INSPECTION, NORMOCEPHALIC - Eye Exam Eye Exam: Normal appearance. absent: Conjunctival injection, Scleral icterus - ENT Exam ENT Exam: Mucous Membranes Dry - Neck Exam Neck exam: Positive for: Full Rom - Respiratory Exam Respiratory Exam: Clear to Auscultation Bilateral, NORMAL BREATHING PATTERN. absent: Accessory Muscle Use, Rales, Rhonchi, Wheezes, Respiratory Distress - Cardiovascular Exam Cardiovascular Exam: Tachycardia, REGULAR RHYTHM, +S1, +S2 - GI/Abdominal Exam GI & Abdominal Exam: Diminished Bowel Sounds, Soft. absent: Distended, Firm, Guarding, Normal Bowel Sounds, Rigid, Tenderness - Rectal Exam Rectal Exam: Deferred - Extremities Exam Extremities exam: Positive for: normal capillary refill, normal inspection, pedal pulses present. Negative for: pedal edema - Neurological Exam Neurological exam: Alert, Oriented x3 Additional comments: LUE spastic paresis - Psychiatric Exam Psychiatric exam: Anxious - Skin Skin Exam: Dry, Intact Results - Vital Signs Recent Vital Signs: Last Vital Signs Temp 97.9 F 06/10/17 05:00 Pulse 88 06/10/17 09:45 Resp 18 06/10/17 09:45 BP 111/67 06/10/17 09:45 Pulse Ox 97 06/10/17 09:45 - Labs Result Diagrams: 06/10/17 04:45 06/10/17 04:45 Labs: Laboratory Results - last 24 hr 06/10/17 06/10/17 06/10/17 04:45 04:45 04:45 WBC 14.0 H D RBC 4.92 Hgb 15.8 Hct 46.5 MCV 94.5 MCH 32.1 MCHC 34.0 RDW 12.4 Plt Count 274 MPV 10.5 Gran % 92.5 H Lymph % (Auto) 5.1 L [place] % (Auto) 2.0 Eos % (Auto) 0.1 L Baso % (Auto) 0.3 Gran # 12.94 H Lymph # (Auto) 0.7 L [place] # (Auto) 0.3 Eos # (Auto) 0.0 Baso # (Auto) 0.04 Neutrophils % (Manual) 88 H Band Neutrophils % 2 Lymphocytes % (Manual) 9 L Monocytes % (Manual) TEST NOT PERFORMED Basophils % (Manual) 1 Platelet Evaluation Normal PT 11.0 INR 0.97 APTT 28.1 pO2 VBG pH VBG pCO2 VBG HCO3 VBG Total CO2 VBG O2 Sat (Calc) VBG Base Excess VBG Potassium Glucose Lactate FiO2 Sodium 142 Potassium 4.0 Chloride 103 Carbon Dioxide 27 Anion Gap 16 BUN 17 Creatinine 0.5 L Est GFR ( Amer) > 60 Est GFR (Non-Af Amer) > 60 Random Glucose 138 H Calcium 10.1 Total Bilirubin 0.4 AST 31 ALT 34 Alkaline Phosphatase 133 H Lactate Dehydrogenase 493 Total Creatine Kinase 56 Troponin I < 0.01 Total Protein 8.0 Albumin 4.6 Globulin 3.4 Albumin/Globulin Ratio 1.4 Amylase 82 Lipase 309 H Venous Blood Potassium Urine Color Urine Appearance Urine pH Ur Specific [place] Urine Protein Urine Glucose (UA) Urine Ketones Urine Blood Urine Nitrate Urine Bilirubin Urine Urobilinogen Ur Leukocyte Esterase 06/10/17 06/10/17 07:49 09:30 WBC RBC Hgb Hct MCV MCH MCHC RDW Plt Count MPV Gran % Lymph % (Auto) [place] % (Auto) Eos % (Auto) Baso % (Auto) Gran # Lymph # (Auto) [place] # (Auto) Eos # (Auto) Baso # (Auto) Neutrophils % (Manual) Band Neutrophils % Lymphocytes % (Manual) Monocytes % (Manual) Basophils % (Manual) Platelet Evaluation PT INR APTT pO2 235 H VBG pH 7.42 VBG pCO2 46.0 VBG HCO3 29.8 H VBG Total CO2 31.2 H VBG O2 Sat (Calc) 100.0 H VBG Base Excess 4.5 H VBG Potassium 3.7 Glucose 114 H Lactate 0.9 FiO2 21.0 Sodium 138.0 Potassium Chloride 107.0 Carbon Dioxide Anion Gap BUN Creatinine Est GFR ( Amer) Est GFR (Non-Af Amer) Random Glucose Calcium Total Bilirubin AST ALT Alkaline Phosphatase Lactate Dehydrogenase Total Creatine Kinase Troponin I Total Protein Albumin Globulin Albumin/Globulin Ratio Amylase Lipase Venous Blood Potassium 3.7 Urine Color Yellow Urine Appearance Clear Urine pH 7.5 Ur Specific [place] 1.015 Urine Protein Negative Urine Glucose (UA) Negative Urine Ketones Trace H Urine Blood Negative Urine Nitrate Negative Urine Bilirubin Negative Urine Urobilinogen 0.2 Ur Leukocyte Esterase Negative Assessment & Plan - Assessment and Plan (Free Text) Assessment: 51F PMHx CP, SBO, colon polyps, overactive bladder, asthma, gastric intestinal metaplasia, +H. Pylori, chronic gastritis presents to ED complaining of nausea/ vomiting for 1 day. Admitted to med/surg for SBO vs chronic constipation Plan: SBO vs Chronic constipation - NPO - NGT placed - CT abd/pelvis: distal SBO. Fluid filled loops of distended small bowel with mesenteric edema. Bowel ischemia cannot be excluded. RLL ground glass infiltrate possibly pna. Pancreas is diffusely prominent compared to prior study ; no sig peripancretaic inflammatory stranding. Possibly mild pancreatitis. - Miralax 17gm po bid - Toradol for pain - Zofran for nausea - GI: Dr. Ledezma - Surgery: Dr. Jorge RLL pneumonia - likely aspiration pna - Unasyn 3gm ivpb q6 Hx of asthma - Duoneb 3ml inh q6 Hx of Cerebral Palsy - chronic- no acute issues GI ppx: Pepcid 40mg ivp qd DVT ppx: Heparin 5000u sc q12 Diet: NPO Fluids: NS @ 120cc/hr Discussed with Dr. Kahlil Sethi PGY2 <Camilo Guillory - Last Filed: 06/11/17 09:31> Results - Vital Signs Recent Vital Signs: Last Vital Signs Temp 99 F 06/11/17 07:42 Pulse 73 06/11/17 07:42 Resp 18 06/11/17 07:42 BP 108/61 06/11/17 07:42 Pulse Ox 99 06/11/17 07:42 - Labs Result Diagrams: 06/11/17 07:30 06/11/17 07:30 Labs: Laboratory Results - last 24 hr 06/10/17 06/11/17 06/11/17 12:05 07:30 07:30 WBC 7.4 D RBC 4.25 Hgb 13.2 D Hct 40.5 MCV 95.3 MCH 31.1 MCHC 32.6 RDW 12.8 Plt Count 225 MPV 10.4 Gran % 68.2 H Lymph % (Auto) 23.5 [place] % (Auto) 6.2 H Eos % (Auto) 1.6 Baso % (Auto) 0.5 Gran # 5.07 Lymph # (Auto) 1.8 [place] # (Auto) 0.5 Eos # (Auto) 0.1 Baso # (Auto) 0.04 Sodium 143 Potassium 3.7 Chloride 109 H Carbon Dioxide 25 Anion Gap 13 BUN 18 Creatinine 0.6 L Est GFR ( Amer) > 60 Est GFR (Non-Af Amer) > 60 Random Glucose 61 L Calcium 8.9 Phosphorus 3.0 Magnesium 2.2 Total Bilirubin 0.7 AST 23 ALT 31 Alkaline Phosphatase 91 Total Protein 5.8 Albumin 3.3 Globulin 2.5 Albumin/Globulin Ratio 1.3 Procalcitonin < 0.05 L Attending/Attestation - Attestation I have personally seen and examined this patient.: Yes I have fully participated in the care of the patient.: Yes I have reviewed all pertinent clinical information: Yes Notes (Text): I have seen and examined the patient at bedside. Agree with the above note with the following additions/ exceptions: Briefly this is 51 year old female with history of recurrent SBO, colon polyps, neurogenic bladder, asthma, gastric intestinal metaplasia, Hpylori gastritis (not treated as she could not tolerate the treatment) who was admitted for evaluation of persistent nausea and vomiting for 1 day which was most likely secondary to SBO vs constipation. CT confirmed findings of distal SBO. Patient has abdominal soreness however abdomen was not tender nor distended. Patient was made NPO and NGT was placed. GI and surgery was consulted. LA level was normal. She was found to have RLL pneumonia on CT scan. Will start unasyn. Discussed in detail with Dr Wright. Upon discharge patient will follow up with Dr Wright. Dr Camilo Guillory
[2017-06-10] MEDS ORDERED: Albuterol-Ipratrop 3 mg / 0.5 (3 ml) UD IH PRN (11:53)
--- NOTE | 2017-06-10 12:02 | CP.PCM.CON ---
History of Present Illness - History of Present Illness History of Present Illness: Surgery consult note for Dr. Jorge: Reason for consult: recurrent SBO Patient is a 54 year old female with a past medical history of small bowel obstruction, chronic gastritis and cerebral palsy that presents to the ED with abdominal pain and nausea that began yesterday. Pt communicates by writing. The patient states that she vomited and has had the mid-abdominal pain for years. But she had worsening yesterday, which brought her to ED. The pain describes the pain constant, achy, has associated nausea. Denies fevers, chills, hematemesis, headache, cough, sob, diarrhea, leg swelling. Reports last bowel movement was yesterday, hard stools. Ct abd pelvis in ED showed distal SBO, for which surgery was consulted. 12 point ROS obtained and negative, except as per HPI. Past Medical Hx: cerebral palsy, small bowel obstruction, chronic gastritis Past surgical hx: Colonoscopy 2013 (colon polyps that were hyperplastic and adenomatous) Allergies: omeprazole Social Hx: patient denies tobacco, alcohol, or drug use. Lives with mother. Medications: MAR reviewed Family Hx: Non-contributory 54 year old female with a small bowel obstruction: - Ct abd pelvis showed distal SBO. fluid filled loops of distended small bowel with ischemia. - Start Miralax - Recommend GI consult for endoscopic disimpaction. - No acute surgical intervention needed at this time - NPO - NS@100 - Toradol prn pain - Avoid narcotics - Will discuss with attending Review of Systems - Review of Systems All systems: reviewed and no additional remarkable complaints except Review of Systems: as per HPI Past Patient History - Tetanus Immunizations Tetanus Immunization: Unknown - Past Social History Smoking Status: Never Smoked - CARDIAC Hx Cardiac Disorders: No Hx Pacemaker: No - PULMONARY Hx Asthma: Yes - NEUROLOGICAL Hx Neurological Disorder: No Hx Paralysis: No - HEENT Other/Comment: pt communicates by writing on paper, impaired speech, pt uses a ttd phone to communicate - RENAL Hx Chronic Kidney Disease: No - ENDOCRINE/METABOLIC Hx Endocrine Disorders: No - HEMATOLOGICAL/ONCOLOGICAL Hx Blood Disorders: No Hx Blood Transfusions: No Hx Blood Transfusion Reaction: No - INTEGUMENTARY Hx Dermatological Problems: No - MUSCULOSKELETAL/RHEUMATOLOGICAL Hx Musculoskeletal Disorders: No (CEREBRAL PALSY) - GASTROINTESTINAL Hx Gastrointestinal Disorders: Yes Hx Gastroesophageal Reflux: Yes - GENITOURINARY/GYNECOLOGICAL Hx Genitourinary Disorders: No - PSYCHIATRIC Hx Psychophysiologic Disorder: No Hx Emotional Abuse: No Hx Physical Abuse: No Hx Substance Use: No - SURGICAL HISTORY Hx Surgeries: No Other/Comment: abdominal - ANESTHESIA Hx Anesthesia Reactions: No Hx Malignant Hyperthermia: No Meds Allergies/Adverse Reactions: Allergies Allergy/AdvReac Type Severity Reaction Status Date / Time omeprazole AdvReac SHORTNESS Verified 06/10/17 05:06 OF BREATH - Medications Medications: Current Medications Albuterol/Ipratropium (Duoneb 3 Mg/0.5 Mg (3 Ml) Ud) 3 ml IH Q6H PRN PRN Reason: Shortness of Breath Famotidine (Pepcid) 40 mg IVP DAILY [facility] Heparin Sodium (Porcine) (Heparin) 5,000 units SC Q12 [facility] PRN Reason: Protocol Sodium Chloride (Sodium Chloride 0.9%) 1,000 mls @ 80 mls/hr IV .[id number] [facility] Last Admin: 06/10/17 04:59 Dose: 80 mls/hr Ketorolac Tromethamine (Toradol) 15 mg IVP Q6H PRN PRN Reason: Pain, moderate (4-7) Ondansetron HCl (Zofran Inj) 4 mg IVP Q4 PRN PRN Reason: Nausea/Vomiting Polyethylene Glycol (Miralax) 17 gm PO BID [facility] Physical Exam - Constitutional Appears: Non-toxic, No Acute Distress, Chronically Ill - Head Exam Head Exam: ATRAUMATIC, NORMOCEPHALIC - Eye Exam Eye Exam: EOMI, PERRL. absent: Conjunctival injection, Nystagmus, Scleral icterus Pupil Exam: NORMAL ACCOMODATION, PERRL. absent: Fixed, Irregular, Unequal - ENT Exam ENT Exam: Mucous Membranes Moist - Neck Exam Neck exam: Positive for: Normal Inspection - Respiratory Exam Respiratory Exam: Clear to Auscultation Bilateral, NORMAL BREATHING PATTERN. absent: Rhonchi, Wheezes - Cardiovascular Exam Cardiovascular Exam: RRR, +S1, +S2. absent: Systolic Murmur - GI/Abdominal Exam GI & Abdominal Exam: Normal Bowel Sounds, Soft, Tenderness (mild TTP disffusely) . absent: Distended, Firm, Guarding, Mass, Organomegaly, Rebound, Rigid - Extremities Exam Extremities exam: Positive for: normal inspection. Negative for: calf tenderness, pedal edema - Back Exam Back exam: NORMAL INSPECTION - Neurological Exam Neurological exam: Alert, Oriented x3 - Psychiatric Exam Psychiatric exam: Normal Affect, Normal Mood - Skin Skin Exam: Dry, Normal Color, Warm Results - Vital Signs Recent Vital Signs: Last Vital Signs Temp 97.9 F 06/10/17 05:00 Pulse 88 06/10/17 09:45 Resp 18 06/10/17 09:45 BP 111/67 06/10/17 09:45 Pulse Ox 97 06/10/17 09:45 - Labs Result Diagrams: 06/10/17 04:45 06/10/17 04:45 Labs: Laboratory Results - last 24 hr 06/10/17 06/10/17 06/10/17 04:45 04:45 04:45 WBC 14.0 H D RBC 4.92 Hgb 15.8 Hct 46.5 MCV 94.5 MCH 32.1 MCHC 34.0 RDW 12.4 Plt Count 274 MPV 10.5 Gran % 92.5 H Lymph % (Auto) 5.1 L [place] % (Auto) 2.0 Eos % (Auto) 0.1 L Baso % (Auto) 0.3 Gran # 12.94 H Lymph # (Auto) 0.7 L [place] # (Auto) 0.3 Eos # (Auto) 0.0 Baso # (Auto) 0.04 Neutrophils % (Manual) 88 H Band Neutrophils % 2 Lymphocytes % (Manual) 9 L Monocytes % (Manual) TEST NOT PERFORMED Basophils % (Manual) 1 Platelet Evaluation Normal PT 11.0 INR 0.97 APTT 28.1 pO2 VBG pH VBG pCO2 VBG HCO3 VBG Total CO2 VBG O2 Sat (Calc) VBG Base Excess VBG Potassium Glucose Lactate FiO2 Sodium 142 Potassium 4.0 Chloride 103 Carbon Dioxide 27 Anion Gap 16 BUN 17 Creatinine 0.5 L Est GFR ( Amer) > 60 Est GFR (Non-Af Amer) > 60 Random Glucose 138 H Calcium 10.1 Total Bilirubin 0.4 AST 31 ALT 34 Alkaline Phosphatase 133 H Lactate Dehydrogenase 493 Total Creatine Kinase 56 Troponin I < 0.01 Total Protein 8.0 Albumin 4.6 Globulin 3.4 Albumin/Globulin Ratio 1.4 Amylase 82 Lipase 309 H Venous Blood Potassium Urine Color Urine Appearance Urine pH Ur Specific [place] Urine Protein Urine Glucose (UA) Urine Ketones Urine Blood Urine Nitrate Urine Bilirubin Urine Urobilinogen Ur Leukocyte Esterase 06/10/17 06/10/17 07:49 09:30 WBC RBC Hgb Hct MCV MCH MCHC RDW Plt Count MPV Gran % Lymph % (Auto) [place] % (Auto) Eos % (Auto) Baso % (Auto) Gran # Lymph # (Auto) [place] # (Auto) Eos # (Auto) Baso # (Auto) Neutrophils % (Manual) Band Neutrophils % Lymphocytes % (Manual) Monocytes % (Manual) Basophils % (Manual) Platelet Evaluation PT INR APTT pO2 235 H VBG pH 7.42 VBG pCO2 46.0 VBG HCO3 29.8 H VBG Total CO2 31.2 H VBG O2 Sat (Calc) 100.0 H VBG Base Excess 4.5 H VBG Potassium 3.7 Glucose 114 H Lactate 0.9 FiO2 21.0 Sodium 138.0 Potassium Chloride 107.0 Carbon Dioxide Anion Gap BUN Creatinine Est GFR ( Amer) Est GFR (Non-Af Amer) Random Glucose Calcium Total Bilirubin AST ALT Alkaline Phosphatase Lactate Dehydrogenase Total Creatine Kinase Troponin I Total Protein Albumin Globulin Albumin/Globulin Ratio Amylase Lipase Venous Blood Potassium 3.7 Urine Color Yellow Urine Appearance Clear Urine pH 7.5 Ur Specific [place] 1.015 Urine Protein Negative Urine Glucose (UA) Negative Urine Ketones Trace H Urine Blood Negative Urine Nitrate Negative Urine Bilirubin Negative Urine Urobilinogen 0.2 Ur Leukocyte Esterase Negative Assessment & Plan - Assessment and Plan (Free Text) Assessment: 54 year old female with a small bowel obstruction and constipation: - Ct abd pelvis showed distal SBO. fluid filled loops of distended small bowel with ischemia. - Start Miralax - Recommend GI consult for endoscopic disimpaction. - No acute surgical intervention needed at this time - NPO - NS@100 - Toradol prn pain - Avoid narcotics - Will discuss with attending - Date & Time Date: 06/10/17 Time: 12:29
[2017-06-10 13:57] VITALS: BMI 15.0
[2017-06-10] MEDS ORDERED: Influenza Vaccine 60 mcg/0.5 mL SYR (4YR UP) IM ONE (13:58)
[2017-06-10] MEDS ORDERED: Pneumococcal 23-Valent Vaccine IM ONE (13:58)
--- NOTE | 2017-06-10 16:06 | RAD ---
HISTORY: NGT placement COMPARISON: No prior. FINDINGS: LUNGS: No active pulmonary disease. PLEURA: No significant pleural effusion identified, no pneumothorax apparent. CARDIOVASCULAR: Normal. OSSEOUS STRUCTURES: No significant abnormalities. VISUALIZED UPPER ABDOMEN: Normal. OTHER FINDINGS: Nasogastric tube tip in satisfactory position in the stomach with the side hole below the gastroesophageal junction. IMPRESSION: No active disease. Satisfactory position of recently placed nasogastric tube.
--- NOTE | 2017-06-10 17:09 | CP.PCM.CON ---
History of Present Illness - History of Present Illness History of Present Illness: Patient is a 54 year old female with a past medical history of small bowel obstruction s/p ex lap, chronic gastritis and cerebral palsy with aphasia that presents to the ED with abdominal pain and nausea worsening in past two days. Pt communicates by writing and states that she vomited and has had the mid- abdominal pain for years. The pain describes the pain constant, achy, has associated nausea. Denies fevers, chills, hematemesis, headache, cough, sob, diarrhea, leg swelling. Reports last bowel movement was yesterday, hard stools. Review of Systems - Review of Systems Review of Systems: 12 point ROS unremarkable except that documented in HPI Past Patient History - Tetanus Immunizations Tetanus Immunization: Unknown - Past Social History Smoking Status: Never Smoked - CARDIAC Hx Cardiac Disorders: No Hx Pacemaker: No - PULMONARY Hx Asthma: Yes - NEUROLOGICAL Hx Neurological Disorder: No Hx Paralysis: No - HEENT Other/Comment: pt communicates by writing on paper, impaired speech, pt uses a ttd phone to communicate - RENAL Hx Chronic Kidney Disease: No - ENDOCRINE/METABOLIC Hx Endocrine Disorders: No - HEMATOLOGICAL/ONCOLOGICAL Hx Blood Disorders: No Hx Blood Transfusions: No Hx Blood Transfusion Reaction: No - INTEGUMENTARY Hx Dermatological Problems: No - MUSCULOSKELETAL/RHEUMATOLOGICAL Hx Musculoskeletal Disorders: No (CEREBRAL PALSY) - GASTROINTESTINAL Hx Gastrointestinal Disorders: Yes Hx Gastroesophageal Reflux: Yes - GENITOURINARY/GYNECOLOGICAL Hx Genitourinary Disorders: No - PSYCHIATRIC Hx Psychophysiologic Disorder: No Hx Emotional Abuse: No Hx Physical Abuse: No Hx Substance Use: No - SURGICAL HISTORY Hx Surgeries: No Other/Comment: abdominal - ANESTHESIA Hx Anesthesia Reactions: No Hx Malignant Hyperthermia: No Meds Allergies/Adverse Reactions: Allergies Allergy/AdvReac Type Severity Reaction Status Date / Time omeprazole AdvReac SHORTNESS Verified 06/10/17 05:06 OF BREATH - Medications Medications: Current Medications Albuterol/Ipratropium (Duoneb 3 Mg/0.5 Mg (3 Ml) Ud) 3 ml IH Q6H PRN PRN Reason: Shortness of Breath Famotidine (Pepcid) 40 mg IVP DAILY [facility] Heparin Sodium (Porcine) (Heparin) 5,000 units SC Q12 [facility] PRN Reason: Protocol Sodium Chloride (Sodium Chloride 0.9%) 1,000 mls @ 120 mls/hr IV .Q8H20M [facility] Ampicillin Sodium/Sulbactam (Sodium 3 gm/ Sodium Chloride) 100 mls @ 200 mls/ hr IVPB Q6 [facility] PRN Reason: Protocol Ketorolac Tromethamine (Toradol) 15 mg IVP Q6H PRN PRN Reason: Pain, moderate (4-7) Last Admin: 06/10/17 14:15 Dose: 15 mg Ondansetron HCl (Zofran Inj) 4 mg IVP Q4 PRN PRN Reason: Nausea/Vomiting Last Admin: 06/10/17 14:39 Dose: 4 mg Polyethylene Glycol (Miralax) 17 gm PO BID [facility] Physical Exam - Constitutional Appears: Cachectic - Head Exam Head Exam: ATRAUMATIC, NORMAL INSPECTION, NORMOCEPHALIC - Eye Exam Eye Exam: EOMI, Normal appearance, PERRL - ENT Exam ENT Exam: Mucous Membranes Dry - Neck Exam Neck exam: Positive for: Normal Inspection - Respiratory Exam Respiratory Exam: Clear to Auscultation Bilateral, NORMAL BREATHING PATTERN - Cardiovascular Exam Cardiovascular Exam: REGULAR RHYTHM - GI/Abdominal Exam GI & Abdominal Exam: Hypoactive Bowel Sounds, Soft Additional comments: No tenderness or guarding. Tympanic bowel sounds - Rectal Exam Rectal Exam: Deferred - Neurological Exam Neurological exam: Alert, Oriented x3 - Psychiatric Exam Psychiatric exam: Normal Affect, Normal Mood - Skin Skin Exam: Dry, Intact Results - Vital Signs Recent Vital Signs: Last Vital Signs Temp 97.9 F 06/10/17 13:15 Pulse 88 06/10/17 13:15 Resp 18 06/10/17 13:15 BP 111/67 06/10/17 13:15 Pulse Ox 98 06/10/17 11:30 - Labs Result Diagrams: 06/10/17 04:45 06/10/17 04:45 Assessment & Plan - Assessment and Plan (Free Text) Assessment: 51 yr old F with cerebral palsy and past SBO with ex lap admitted with worsening abdominal pain, nausea and hard stools. CTAP with dilated small bowle loops and stool in the colon. Will start laxatives and place NGT for output monitoring Plan: - Surgical consult appreciated - NGT placemnet - Miralax bid - PPI through NGT - Supportive care - Anti emetics as needed - NPO - Consider CTAP with IV contrast to look at vessels - IVF - Monitor NGT output - Will follow
[2017-06-10] MEDS: POLYETHYLENE GLYCOL 3350 17 GM/Dose PACKET PO SCH (18:35)
[2017-06-10] MEDS: Sodium Chloride 0.9% 1,000 ML IV SCH (23:21)
[2017-06-11 08:01] LABS: BASO # 0.04 K/mm3 (0.0-2.0); BASO % 0.5 % (0.0-3.0); EOS # 0.1 (0.0-0.7); EOS % 1.6 % (1.5-5.0); GRAN # 5.07 (1.4-6.5); GRAN % 68.2 % (50.0-68.0); HEMOGLOBIN 13.2 g/dL (12.0-16.0); LYMPH # 1.8 (1.2-3.4); LYMPH % 23.5 % (22.0-35.0); MEAN CELL VOLUME 95.3 fl (80.0-105.0); MEAN CORPUSCULAR HEMOGLOBIN 31.1 pg (25.0-35.0); MEAN CORPUSCULAR HGB CONC 32.6 g/dl (31.0-37.0); MEAN PLATELET VOLUME 10.4 fl (7.0-11.0); MONO # 0.5 (0.1-0.6); MONO % 6.2 % (1.0-6.0); RBC 4.25 10^6/uL (3.5-6.1); RED CELL DISTRIBUTION WIDTH 12.8 % (11.5-14.5); WHITE BLOOD COUNT 7.4 10^3/ul (4.5-11.0)
[2017-06-11 08:11] LABS: ALB/GLOB RATIO 1.3 (1.1-1.8); ALBUMIN 3.3 g/dL (3.0-4.8); ALT/SGPT 31 U/L (7-56); AST/SGOT 23 U/L (14-36); BLOOD UREA NITROGEN 18 mg/dL (7-21); CALCIUM 8.9 mg/dL (8.4-10.5); GFR AFRICAN-AMERICAN > 60; GFR NON-AFRICAN AMERICAN > 60
--- NOTE | 2017-06-11 08:19 | CP.PCM.PN ---
Subjective - Date & Time of Evaluation Date of Evaluation: 06/11/17 Time of Evaluation: 08:05 - Subjective Subjective: Surgery Progress Note for Dr Jorge: Patient seen and examined at bedside. No acute events overnight. Pt reports mild improvement of nausea symptoms. Still reports abdominal pain. States that she would like to have surgery done to remove the colon to stop the symptoms. NGT draining greenish fluid overnight. Removed NGT this AM at bedside. Objective - Vital Signs/Intake and Output Vital Signs (last 24 hours): Temp Pulse Resp BP Pulse Ox 99 F 73 18 108/61 99 06/11/17 07:42 06/11/17 07:42 06/11/17 07:42 06/11/17 07:42 06/11/17 07:42 Intake and Output: 06/11/17 06/11/17 06:59 18:59 Intake Total 2220 Output Total 100 Balance 2120 - Medications Medications: Current Medications Albuterol/Ipratropium (Duoneb 3 Mg/0.5 Mg (3 Ml) Ud) 3 ml IH Q6H PRN PRN Reason: Shortness of Breath Famotidine (Pepcid) 40 mg IVP DAILY [facility] Heparin Sodium (Porcine) (Heparin) 5,000 units SC Q12 [facility] PRN Reason: Protocol Last Admin: 06/10/17 21:40 Dose: 5,000 units Sodium Chloride (Sodium Chloride 0.9%) 1,000 mls @ 120 mls/hr IV .Q8H20M [facility] Last Admin: 06/10/17 23:21 Dose: 120 mls/hr Ampicillin Sodium/Sulbactam (Sodium 3 gm/ Sodium Chloride) 100 mls @ 200 mls/ hr IVPB Q6 [facility] PRN Reason: Protocol Last Admin: 06/11/17 05:24 Dose: 200 mls/hr Ketorolac Tromethamine (Toradol) 15 mg IVP Q6H PRN PRN Reason: Pain, moderate (4-7) Last Admin: 06/10/17 14:15 Dose: 15 mg Ondansetron HCl (Zofran Inj) 4 mg IVP Q4 PRN PRN Reason: Nausea/Vomiting Last Admin: 06/10/17 14:39 Dose: 4 mg Polyethylene Glycol (Miralax) 17 gm PO BID [facility] Last Admin: 06/10/17 18:35 Dose: 17 gm - Labs Labs: 06/11/17 07:30 PT 11.0 SECONDS (9.4-12.5) 06/10/17 04:45 INR 0.97 (0.93-1.08) 06/10/17 04:45 APTT 28.1 Seconds (25.1-36.5) 06/10/17 04:45 - Additional Findings Additional findings: - Constitutional Appears: Non-toxic, No Acute Distress, Chronically Ill - Head Exam Head Exam: ATRAUMATIC, NORMOCEPHALIC - Eye Exam Eye Exam: EOMI, PERRL. absent: Conjunctival injection, Nystagmus, Scleral icterus Pupil Exam: NORMAL ACCOMODATION, PERRL. absent: Fixed, Irregular, Unequal - ENT Exam ENT Exam: Mucous Membranes Moist - Neck Exam Neck exam: Positive for: Normal Inspection - Respiratory Exam Respiratory Exam: Clear to Auscultation Bilateral, NORMAL BREATHING PATTERN. absent: Rhonchi, Wheezes - Cardiovascular Exam Cardiovascular Exam: RRR, +S1, +S2. absent: Systolic Murmur - GI/Abdominal Exam GI & Abdominal Exam: Normal Bowel Sounds, Soft. left sided midabdominal incisional scar noted. absent: Tenderness, Distended, Firm, Guarding, Mass, Organomegaly, Rebound, Rigid - Extremities Exam Extremities exam: Positive for: normal inspection. Negative for: calf tenderness, pedal edema - Back Exam Back exam: NORMAL INSPECTION - Neurological Exam Neurological exam: Alert, Oriented x3 - Psychiatric Exam Psychiatric exam: Normal Affect, Normal Mood - Skin Skin Exam: Dry, Normal Color, Warm Assessment and Plan - Assessment and Plan (Free Text) Assessment: 54 year old female with PMH SBO with ex lap, cerebral palsy, presents for distended small bowel obstruction, hard stools: - Ct abd pelvis showed distal SBO. fluid filled loops of distended small bowel with ischemia. - Miralax BID - GI recs appreciated. - No acute surgical intervention needed at this time - CLD - NS@100 - Toradol prn pain - Avoid narcotics - Will discuss with Dr Jorge
[2017-06-11] MEDS ORDERED: Iohexol 350 MG/100 ML VIAL ONE (09:22)
[2017-06-11] MEDS: POLYETHYLENE GLYCOL 3350 17 GM/Dose PACKET PO SCH ×2 (09:25→17:09)
--- NOTE | 2017-06-11 09:37 | CP.PCM.PN ---
<GilmerEli - Last Filed: 06/11/17 09:31> Subjective - Date & Time of Evaluation Date of Evaluation: 06/11/17 Time of Evaluation: 09:00 - Subjective Subjective: GI Fellow PGY 4 Progress Note Pt seen and evaluated at bedside, pt doing better this morning and had NGT removed this am with 100cc overnight. Pt with large BM yesterday after enema. Pt reports having N/V and abdominal vargas post prandial for 4yrs. Hx of HP but no prior treatment. ROS: A 12pt ROS was negative except as above. Objective - Vital Signs/Intake and Output Vital Signs (last 24 hours): Temp Pulse Resp BP Pulse Ox 99 F 73 18 108/61 99 06/11/17 07:42 06/11/17 07:42 06/11/17 07:42 06/11/17 07:42 06/11/17 07:42 Intake and Output: 06/11/17 06/11/17 06:59 18:59 Intake Total 2220 Output Total 100 Balance 2120 - Medications Medications: Current Medications Albuterol/Ipratropium (Duoneb 3 Mg/0.5 Mg (3 Ml) Ud) 3 ml IH Q6H PRN PRN Reason: Shortness of Breath Famotidine (Pepcid) 40 mg IVP DAILY [facility] Heparin Sodium (Porcine) (Heparin) 5,000 units SC Q12 [facility] PRN Reason: Protocol Last Admin: 06/10/17 21:40 Dose: 5,000 units Sodium Chloride (Sodium Chloride 0.9%) 1,000 mls @ 120 mls/hr IV .Q8H20M [facility] Last Admin: 06/10/17 23:21 Dose: 120 mls/hr Ampicillin Sodium/Sulbactam (Sodium 3 gm/ Sodium Chloride) 100 mls @ 200 mls/ hr IVPB Q6 [facility] PRN Reason: Protocol Last Admin: 06/11/17 05:24 Dose: 200 mls/hr Ketorolac Tromethamine (Toradol) 15 mg IVP Q6H PRN PRN Reason: Pain, moderate (4-7) Last Admin: 06/10/17 14:15 Dose: 15 mg Ondansetron HCl (Zofran Inj) 4 mg IVP Q4 PRN PRN Reason: Nausea/Vomiting Last Admin: 06/10/17 14:39 Dose: 4 mg Polyethylene Glycol (Miralax) 17 gm PO BID [facility] Last Admin: 06/10/17 18:35 Dose: 17 gm - Labs Labs: 06/11/17 07:30 06/11/17 07:30 PT 11.0 SECONDS (9.4-12.5) 06/10/17 04:45 INR 0.97 (0.93-1.08) 06/10/17 04:45 APTT 28.1 Seconds (25.1-36.5) 06/10/17 04:45 - Constitutional Appears: Non-toxic, No Acute Distress, Cachectic - Head Exam Head Exam: ATRAUMATIC, NORMAL INSPECTION, NORMOCEPHALIC - Eye Exam Eye Exam: PERRL - ENT Exam ENT Exam: Mucous Membranes Dry - Neck Exam Neck Exam: Full ROM - Respiratory Exam Respiratory Exam: NORMAL BREATHING PATTERN - Cardiovascular Exam Cardiovascular Exam: REGULAR RHYTHM - GI/Abdominal Exam GI & Abdominal Exam: Soft, Normal Bowel Sounds. absent: Distended, Guarding, Tenderness, Organomegaly - Rectal Exam Rectal Exam: Deferred - Extremities Exam Extremities Exam: Full ROM, Normal Inspection - Back Exam Back Exam: NORMAL INSPECTION - Neurological Exam Neurological Exam: Alert, Awake, Oriented x3 - Psychiatric Exam Psychiatric exam: Normal Affect, Normal Mood - Skin Skin Exam: Dry, Intact, Normal Color, Warm Assessment and Plan - Assessment and Plan (Free Text) Assessment: This is a 51 yr old F with cerebral palsy and past SBO with ex lap admitted with worsening abdominal pain, nausea and hard stools. CTAP with dilated small bowle loops and stool in the colon. 1. Abdominal pain, N/V post prandial ddx-SMAS? Heliocobacter pylori 2. Constipation 3. SBO, closed loop Plan: -Continue supportive care with anti-emetics - CT Imaging reviewed, concern for possible SMAS? - Plan for EGD and biopsy to r/o HP and any signs of SMAS - Miralax bid - PPI - Anti emetics as needed - NPO - IVF - Plan for Upper GI series with small bowel follow through today after EGD - Will follow closely <Lukasz Vargas - Last Filed: 06/11/17 11:10> Objective - Vital Signs/Intake and Output Vital Signs (last 24 hours): Temp Pulse Resp BP Pulse Ox 99 F 73 18 108/61 99 06/11/17 07:42 06/11/17 07:42 06/11/17 07:42 06/11/17 07:42 06/11/17 07:42 Intake and Output: 06/11/17 06/11/17 06:59 18:59 Intake Total 2220 Output Total 100 Balance 2120 - Medications Medications: Current Medications Albuterol/Ipratropium (Duoneb 3 Mg/0.5 Mg (3 Ml) Ud) 3 ml IH Q6H PRN PRN Reason: Shortness of Breath Famotidine (Pepcid) 40 mg IVP DAILY [facility] Last Admin: 06/11/17 09:26 Dose: Not Given Heparin Sodium (Porcine) (Heparin) 5,000 units SC Q12 [facility] PRN Reason: Protocol Last Admin: 06/11/17 09:26 Dose: Not Given Sodium Chloride (Sodium Chloride 0.9%) 1,000 mls @ 120 mls/hr IV .Q8H20M [facility] Last Admin: 06/11/17 09:50 Dose: 120 mls/hr Ampicillin Sodium/Sulbactam (Sodium 3 gm/ Sodium Chloride) 100 mls @ 200 mls/ hr IVPB Q6 [facility] PRN Reason: Protocol Last Admin: 06/11/17 05:24 Dose: 200 mls/hr Ketorolac Tromethamine (Toradol) 15 mg IVP Q6H PRN PRN Reason: Pain, moderate (4-7) Last Admin: 06/10/17 14:15 Dose: 15 mg Ondansetron HCl (Zofran Inj) 4 mg IVP Q4 PRN PRN Reason: Nausea/Vomiting Last Admin: 06/10/17 14:39 Dose: 4 mg Polyethylene Glycol (Miralax) 17 gm PO BID [facility] Last Admin: 06/11/17 09:25 Dose: Not Given - Labs Labs: 06/11/17 07:30 06/11/17 07:30 PT 11.0 SECONDS (9.4-12.5) 06/10/17 04:45 INR 0.97 (0.93-1.08) 06/10/17 04:45 APTT 28.1 Seconds (25.1-36.5) 06/10/17 04:45 Attending/Attestation - Attestation I have personally seen and examined this patient.: Yes I have fully participated in the care of the patient.: Yes I have reviewed all pertinent clinical information, including history, physical exam and plan: Yes Notes (Text): 06/11/17 11:09 51 year old female admitted with small bowel obstruction. She has a long standing history of intermittent SBO. Review of her CT is suspicious for SMAS. Recommend EGD today. Recommend SBFT. Appreciate surgical eval. Will follow.
[2017-06-11] MEDS: Sodium Chloride 0.9% 1,000 ML IV SCH (09:50)
--- NOTE | 2017-06-11 10:49 | CARD ---
APPROVED REPORT EKG Measurement Heart [id number] <Conclusion> Normal sinus rhythm RVCD Prolonged QTc No change
--- NOTE | 2017-06-11 12:29 | CP.PCM.PN ---
<Misbah Hussein Terri - Last Filed: 06/11/17 12:51> Subjective - Date & Time of Evaluation Date of Evaluation: 06/11/17 Time of Evaluation: 12:17 - Subjective Subjective: Medicine Progress Note: Dr. Koki Guillory Patient seen and examined at bedside. Per nursing, patient had a large bowel movement this morning. Patient herself states that she has been passing gas. She also complains of mild LLQ abdominal pain. Patient states that her nausea and vomiting is much better. Objective - Vital Signs/Intake and Output Vital Signs (last 24 hours): Temp Pulse Resp BP Pulse Ox 99 F 73 18 108/61 99 06/11/17 07:42 06/11/17 07:42 06/11/17 07:42 06/11/17 07:42 06/11/17 07:42 Intake and Output: 06/11/17 06/11/17 06:59 18:59 Intake Total 2220 Output Total 100 Balance 2120 - Medications Medications: Current Medications Albuterol/Ipratropium (Duoneb 3 Mg/0.5 Mg (3 Ml) Ud) 3 ml IH Q6H PRN PRN Reason: Shortness of Breath Famotidine (Pepcid) 40 mg IVP DAILY [facility] Last Admin: 06/11/17 09:26 Dose: Not Given Heparin Sodium (Porcine) (Heparin) 5,000 units SC Q12 [facility] PRN Reason: Protocol Last Admin: 06/11/17 09:26 Dose: Not Given Sodium Chloride (Sodium Chloride 0.9%) 1,000 mls @ 120 mls/hr IV .Q8H20M [facility] Last Admin: 06/11/17 09:50 Dose: 120 mls/hr Ketorolac Tromethamine (Toradol) 15 mg IVP Q6H PRN PRN Reason: Pain, moderate (4-7) Last Admin: 06/10/17 14:15 Dose: 15 mg Ondansetron HCl (Zofran Inj) 4 mg IVP Q4 PRN PRN Reason: Nausea/Vomiting Last Admin: 06/10/17 14:39 Dose: 4 mg Polyethylene Glycol (Miralax) 17 gm PO BID [facility] Last Admin: 06/11/17 09:25 Dose: Not Given - Labs Labs: 06/11/17 07:30 06/11/17 07:30 PT 11.0 SECONDS (9.4-12.5) 06/10/17 04:45 INR 0.97 (0.93-1.08) 06/10/17 04:45 APTT 28.1 Seconds (25.1-36.5) 06/10/17 04:45 - Constitutional Appears: Well, Non-toxic, No Acute Distress, Cachectic - Head Exam Head Exam: ATRAUMATIC, NORMAL INSPECTION, NORMOCEPHALIC - Eye Exam Eye Exam: EOMI, Normal appearance, PERRL Pupil Exam: NORMAL ACCOMODATION, PERRL - ENT Exam ENT Exam: Mucous Membranes Moist, Normal Exam - Neck Exam Neck Exam: Full ROM, Normal Inspection. absent: Lymphadenopathy - Respiratory Exam Respiratory Exam: Clear to Ausculation Bilateral, NORMAL BREATHING PATTERN - Cardiovascular Exam Cardiovascular Exam: REGULAR RHYTHM, +S1, +S2. absent: Murmur - GI/Abdominal Exam GI & Abdominal Exam: Soft, Normal Bowel Sounds. absent: Tenderness - Extremities Exam Extremities Exam: Full ROM, Normal Capillary Refill, Normal Inspection. absent : Joint Swelling, Pedal Edema - Back Exam Back Exam: NORMAL INSPECTION - Neurological Exam Neurological Exam: Alert, Awake, CN II-XII Intact, Normal Gait, Oriented x3 - Psychiatric Exam Psychiatric exam: Normal Affect, Normal Mood - Skin Skin Exam: Dry, Intact, Normal Color, Warm - Additional Findings Additional findings: Patient communicates by writing out her messages Assessment and Plan - Assessment and Plan (Free Text) Assessment: 51F PMHx CP, SBO, colon polyps, overactive bladder, asthma, gastric intestinal metaplasia, +H. Pylori, chronic gastritis presents to ED complaining of nausea/ vomiting for 1 day. Admitted to med/surg for SBO vs chronic constipation SBO vs Chronic constipation - NPO - patient getting EGD this AM - NGT out at 7:30A - Miralax 17gm po bid; Toradol for pain; Zofran for nausea - GI: Dr. Ledezma - Patient getting UGI series to rule out SMA syndrome - Supportive therapy - EGD this AM - Surgery: Dr. Jorge - No surgical intervention at this time RLL pneumonia likely 2/2 Aspiration PNA - Unasyn 3gm ivpb q6 Hx of asthma - Duoneb 3ml inh q6 Hx of Cerebral Palsy - chronic- no acute issues GI ppx: Pepcid 40mg ivp qd DVT ppx: Heparin 5000u sc q12 Diet: NPO Fluids: NS @ 120cc/hr <Camilo Guillory - Last Filed: 06/12/17 11:05> Objective - Vital Signs/Intake and Output Vital Signs (last 24 hours): Temp Pulse Resp BP Pulse Ox 97.8 F 61 18 101/63 100 06/12/17 07:48 06/12/17 07:48 06/12/17 07:48 06/12/17 07:48 06/12/17 07:48 Intake and Output: 06/12/17 06/12/17 06:59 18:59 Intake Total 840 Balance 840 - Medications Medications: Current Medications Albuterol/Ipratropium (Duoneb 3 Mg/0.5 Mg (3 Ml) Ud) 3 ml IH Q6H PRN PRN Reason: Shortness of Breath Heparin Sodium (Porcine) (Heparin) 5,000 units SC Q12 [facility] PRN Reason: Protocol Last Admin: 06/12/17 10:49 Dose: 5,000 units Ondansetron HCl (Zofran Inj) 4 mg IVP Q4 PRN PRN Reason: Nausea/Vomiting Last Admin: 06/10/17 14:39 Dose: 4 mg Pantoprazole Sodium (Protonix Ec Tab) 40 mg PO 0600 [facility] Polyethylene Glycol (Miralax) 17 gm PO BID [facility] Last Admin: 06/12/17 10:39 Dose: Not Given - Labs Labs: 06/12/17 06:20 06/12/17 06:20 PT 11.0 SECONDS (9.4-12.5) 06/10/17 04:45 INR 0.97 (0.93-1.08) 06/10/17 04:45 APTT 28.1 Seconds (25.1-36.5) 06/10/17 04:45 Attending/Attestation - Attestation I have personally seen and examined this patient.: Yes I have fully participated in the care of the patient.: Yes I have reviewed all pertinent clinical information, including history, physical exam and plan: Yes Notes (Text): I have seen and examined the patient at bedside. Agree with the above note with the following additions/ exceptions: Briefly this is 51 year old female with history of recurrent SBO, colon polyps, neurogenic bladder, asthma, gastric intestinal metaplasia, Hpylori gastritis (not treated as she could not tolerate the treatment) who was admitted for evaluation of persistent nausea and vomiting for 1 day which was most likely secondary to SBO vs constipation. CT confirmed findings of distal SBO. Patient has abdominal soreness however abdomen was not tender nor distended. Patient was made NPO. NGT was removed this morning. LA level was normal. Patient is scheduled for endoscopy today. She was found to have RLL pneumonia on CT scan. Continue unasyn. Discussed in detail with Dr Wright. Upon discharge patient will follow up with Dr Wright. Dr Camilo Guillory
[2017-06-11] MEDS ORDERED: Propofol 10 mg/ml Inj (20 ML) ONE (12:48)
[2017-06-11] MEDS ORDERED: Lidocaine 2% Inj (20ml) ONE (12:55)
[2017-06-11] MEDS ORDERED: Sodium Chloride 0.9% 1,000 ML IV SCH (13:15)
[2017-06-12 06:56] LABS: BASO # 0.05 K/mm3 (0.0-2.0); BASO % 0.9 % (0.0-3.0); EOS # 0.2 (0.0-0.7); EOS % 3.5 % (1.5-5.0); GRAN # 3.03 (1.4-6.5); HEMOGLOBIN 12.8 g/dL (12.0-16.0); LYMPH # 1.7 (1.2-3.4); LYMPH % 31.8 % (22.0-35.0); MEAN CELL VOLUME 95.4 fl (80.0-105.0); MEAN CORPUSCULAR HEMOGLOBIN 30.9 pg (25.0-35.0); MEAN CORPUSCULAR HGB CONC 32.4 g/dl (31.0-37.0); MEAN PLATELET VOLUME 10.4 fl (7.0-11.0); MONO # 0.4 (0.1-0.6); MONO % 7.8 % (1.0-6.0); RBC 4.14 10^6/uL (3.5-6.1); RED CELL DISTRIBUTION WIDTH 12.7 % (11.5-14.5); WHITE BLOOD COUNT 5.4 10^3/ul (4.5-11.0)
[2017-06-12] MEDS ORDERED: Magnesium Citrate Oral SOL (300 ml) PO ONE (07:04)
[2017-06-12 07:43] LABS: ALB/GLOB RATIO 1.2 (1.1-1.8); ALBUMIN 3.3 g/dL (3.0-4.8); ALT/SGPT 27 U/L (7-56); AST/SGOT 29 U/L (14-36); BLOOD UREA NITROGEN 15 mg/dL (7-21); CALCIUM 9.2 mg/dL (8.4-10.5); GFR AFRICAN-AMERICAN > 60; GFR NON-AFRICAN AMERICAN > 60
--- NOTE | 2017-06-12 08:07 | CP.PCM.PN ---
Subjective - Date & Time of Evaluation Date of Evaluation: 06/12/17 Time of Evaluation: 08:03 - Subjective Subjective: Surgery Progress Note for Dr Jorge: Patient seen and examined at bedside. [place]. Pt reports constipation and would like to be started on Omeprazole, instead of Pepcid. Reports abdominal pain. Underwent EGD yesterday. Denies fever, chills, vomiting, urinary symptoms. Objective - Vital Signs/Intake and Output Vital Signs (last 24 hours): Temp Pulse Resp BP Pulse Ox 97.8 F 61 18 101/63 100 06/12/17 07:48 06/12/17 07:48 06/12/17 07:48 06/12/17 07:48 06/12/17 07:48 Intake and Output: 06/12/17 06/12/17 06:59 18:59 Intake Total 840 Balance 840 - Medications Medications: Current Medications Albuterol/Ipratropium (Duoneb 3 Mg/0.5 Mg (3 Ml) Ud) 3 ml IH Q6H PRN PRN Reason: Shortness of Breath Famotidine (Pepcid) 20 mg PO 1000,2200 [facility] Last Admin: 06/11/17 21:17 Dose: 20 mg Heparin Sodium (Porcine) (Heparin) 5,000 units SC Q12 [facility] PRN Reason: Protocol Last Admin: 06/11/17 09:26 Dose: Not Given Ketorolac Tromethamine (Toradol) 15 mg IVP Q6H PRN PRN Reason: Pain, moderate (4-7) Last Admin: 06/10/17 14:15 Dose: 15 mg Ondansetron HCl (Zofran Inj) 4 mg IVP Q4 PRN PRN Reason: Nausea/Vomiting Last Admin: 06/10/17 14:39 Dose: 4 mg Polyethylene Glycol (Miralax) 17 gm PO BID [facility] Last Admin: 06/11/17 17:09 Dose: 17 gm - Labs Labs: 06/12/17 06:20 06/12/17 06:20 PT 11.0 SECONDS (9.4-12.5) 06/10/17 04:45 INR 0.97 (0.93-1.08) 06/10/17 04:45 APTT 28.1 Seconds (25.1-36.5) 06/10/17 04:45 - Additional Findings Additional findings: - Constitutional Appears: Non-toxic, No Acute Distress, Chronically Ill - Head Exam Head Exam: ATRAUMATIC, NORMOCEPHALIC - Eye Exam Eye Exam: EOMI, PERRL. absent: Conjunctival injection, Nystagmus, Scleral icterus Pupil Exam: NORMAL ACCOMODATION, PERRL. absent: Fixed, Irregular, Unequal - ENT Exam ENT Exam: Mucous Membranes Moist - Neck Exam Neck exam: Positive for: Normal Inspection - Respiratory Exam Respiratory Exam: Clear to Auscultation Bilateral, NORMAL BREATHING PATTERN. absent: Rhonchi, Wheezes - Cardiovascular Exam Cardiovascular Exam: RRR, +S1, +S2. absent: Systolic Murmur - GI/Abdominal Exam GI & Abdominal Exam: Normal Bowel Sounds, Soft. left sided midabdominal incisional scar noted. absent: Tenderness, Distended, Firm, Guarding, Mass, Organomegaly, Rebound, Rigid - Extremities Exam Extremities exam: Positive for: normal inspection. Negative for: calf tenderness, pedal edema - Back Exam Back exam: NORMAL INSPECTION - Neurological Exam Neurological exam: Alert, Oriented x3 - Psychiatric Exam Psychiatric exam: Normal Affect, Normal Mood - Skin Skin Exam: Dry, Normal Color, Warm Assessment and Plan - Assessment and Plan (Free Text) Assessment: 54 year old female with PMH SBO with ex lap, cerebral palsy, presents for distended small bowel obstruction, constipation, also found to be concerning for SMA stenosis: - EGD done yesterday showed gastritis. - Ct abd pelvis showed distal SBO. fluid filled loops of distended small bowel with ischemia. - Miralax BID, received Mag citrate this AM. - GI recs appreciated. - No acute surgical intervention needed at this time - Diet as per GI - Avoid narcotics - Will discuss with Dr Jorge
[2017-06-12] MEDS: POLYETHYLENE GLYCOL 3350 17 GM/Dose PACKET PO SCH ×2 (10:39→17:32)
--- NOTE | 2017-06-12 12:01 | CP.PCM.PN ---
<Michael Lisa - Last Filed: 06/12/17 12:06> Subjective - Date & Time of Evaluation Date of Evaluation: 06/12/17 Time of Evaluation: 08:00 - Subjective Subjective: GI Fellow PGY 4 Progress Note Pt seen and evaluated at bedside pt doing better this morning Pt had small BM yesterday but large the day before. ROS: A 12pt ROS was negative except as above. Objective - Vital Signs/Intake and Output Vital Signs (last 24 hours): Temp Pulse Resp BP Pulse Ox 97.8 F 61 18 101/63 100 06/12/17 07:48 06/12/17 07:48 06/12/17 07:48 06/12/17 07:48 06/12/17 07:48 Intake and Output: 06/12/17 06/12/17 06:59 18:59 Intake Total 840 Balance 840 - Medications Medications: Current Medications Albuterol/Ipratropium (Duoneb 3 Mg/0.5 Mg (3 Ml) Ud) 3 ml IH Q6H PRN PRN Reason: Shortness of Breath Heparin Sodium (Porcine) (Heparin) 5,000 units SC Q12 [facility] PRN Reason: Protocol Last Admin: 06/12/17 10:49 Dose: 5,000 units Ondansetron HCl (Zofran Inj) 4 mg IVP Q4 PRN PRN Reason: Nausea/Vomiting Last Admin: 06/10/17 14:39 Dose: 4 mg Pantoprazole Sodium (Protonix Ec Tab) 40 mg PO 0600 [facility] Polyethylene Glycol (Miralax) 17 gm PO BID [facility] Last Admin: 06/12/17 10:39 Dose: Not Given - Labs Labs: 06/12/17 06:20 06/12/17 06:20 PT 11.0 SECONDS (9.4-12.5) 06/10/17 04:45 INR 0.97 (0.93-1.08) 06/10/17 04:45 APTT 28.1 Seconds (25.1-36.5) 06/10/17 04:45 - Constitutional Appears: Non-toxic, No Acute Distress, Chronically Ill - Head Exam Head Exam: ATRAUMATIC, NORMOCEPHALIC - Eye Exam Eye Exam: Normal appearance - ENT Exam ENT Exam: Mucous Membranes Moist, Normal Exam - Respiratory Exam Respiratory Exam: Clear to Ausculation Bilateral, NORMAL BREATHING PATTERN. absent: Rales, Rhonchi, Wheezes, Respiratory Distress - Cardiovascular Exam Cardiovascular Exam: REGULAR RHYTHM, +S1, +S2 - GI/Abdominal Exam GI & Abdominal Exam: Soft, Normal Bowel Sounds. absent: Guarding, Rigid, Tenderness - Extremities Exam Extremities Exam: absent: Joint Swelling, Pedal Edema - Neurological Exam Neurological Exam: Alert, Awake, Oriented x3 - Psychiatric Exam Psychiatric exam: Normal Affect, Normal Mood - Skin Skin Exam: Dry, Intact, Normal Color, Warm Assessment and Plan - Assessment and Plan (Free Text) Assessment: This is a 51 yr old F with cerebral palsy and past SBO with ex lap admitted with worsening abdominal pain, nausea and hard stools. CTAP with dilated small bowle loops and stool in the colon. 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 Pylori Constipation SBO, closed loop (resolved) Plan: -Continue supportive care with anti-emetics - CT Imaging reviewed, concern for possible SMAS? - can start clears - Miralax bid - PPI - Anti emetics as needed - IVF - Plan for Upper GI series with small bowel follow through - may still need CTA - Will follow closely D/W Dr. Ledezma <Nai Ledezma - Last Filed: 06/12/17 21:58> Objective - Vital Signs/Intake and Output Vital Signs (last 24 hours): Temp Pulse Resp BP Pulse Ox 97.8 F 61 18 101/63 100 06/12/17 07:48 06/12/17 07:48 06/12/17 07:48 06/12/17 07:48 06/12/17 07:48 - Medications Medications: Current Medications Albuterol/Ipratropium (Duoneb 3 Mg/0.5 Mg (3 Ml) Ud) 3 ml IH Q6H PRN PRN Reason: Shortness of Breath Bisacodyl (Dulcolax) 10 mg RC BID PRN PRN Reason: Constipation Heparin Sodium (Porcine) (Heparin) 5,000 units SC Q12 [facility] PRN Reason: Protocol Last Admin: 06/12/17 21:44 Dose: 5,000 units Magnesium Citrate (Citrate Of Mag) 300 ml PO ONCE ONE Stop: 06/13/17 10:01 Magnesium Hydroxide (Milk Of Magnesia) 30 ml PO DAILY PRN PRN Reason: Constipation Ondansetron HCl (Zofran Inj) 4 mg IVP Q4 PRN PRN Reason: Nausea/Vomiting Last Admin: 06/10/17 14:39 Dose: 4 mg Pantoprazole Sodium (Protonix Ec Tab) 40 mg PO 0600 [facility] Polyethylene Glycol (Miralax) 17 gm PO BID [facility] Last Admin: 06/12/17 17:32 Dose: Not Given - Labs Labs: 06/12/17 06:20 06/12/17 06:20 PT 11.0 SECONDS (9.4-12.5) 06/10/17 04:45 INR 0.97 (0.93-1.08) 06/10/17 04:45 APTT 28.1 Seconds (25.1-36.5) 06/10/17 04:45 Attending/Attestation - Attestation I have personally seen and examined this patient.: Yes I have fully participated in the care of the patient.: Yes I have reviewed all pertinent clinical information, including history, physical exam and plan: Yes Notes (Text): 06/12/17 21:57 This is a 51 yr old F with cerebral palsy and past SBO with ex lap admitted with worsening abdominal pain, nausea and hard stools. CTAP with dilated small bowle loops and stool in the colon. s/p EGD which revealed an extrinsically stensoses 3rd portion of duodenum and gastric erosions. Upper Gi series unremarkable. Will do CT angiogram. Continue supportive care with anti-emetics. Continue po clears and Miralax bid with PPI. Anti emetics as needed. Will follow closely
[2017-06-12] MEDS ORDERED: Barium Sulfate for Susp 96% w/w 176g Bottle PR ONE ×2 (13:09)
--- NOTE | 2017-06-12 15:58 | RAD ---
PROCEDURE: Upper GI and small bowel series HISTORY: r/o SMA syndrome COMPARISON: TECHNIQUE: A single contrast study was performed FINDINGS: The esophagus stomach and duodenum are normal in contour. There is no duodenal obstruction to suggest SMA syndrome. The small bowel is normal in caliber. Contrast reaches the colon within 110 minutes. The terminal ileum is normal. There are no inflammatory changes seen. IMPRESSION: Negative study
[2017-06-12] MEDS ORDERED: Magnesium Hydroxide Susp 30 ml UD PO PRN (16:59)
--- NOTE | 2017-06-12 18:17 | CP.PCM.PN ---
<Misbah Hussein - Last Filed: 06/12/17 18:17> Subjective - Date & Time of Evaluation Date of Evaluation: 06/12/17 Time of Evaluation: 18:15 - Subjective Subjective: Medicine progress note: Dr. Koki Guillory Patient seen and examined at bedside. Patient was tearful and frustrated because she feels like she is being "babied." Other than that, patient states that she is passing gas and passed bowels yesterday. Nausea and vomititng have resolved. Objective - Vital Signs/Intake and Output Vital Signs (last 24 hours): Temp Pulse Resp BP Pulse Ox 97.8 F 61 18 101/63 100 06/12/17 07:48 06/12/17 07:48 06/12/17 07:48 06/12/17 07:48 06/12/17 07:48 Intake and Output: 06/12/17 06/12/17 06:59 18:59 Intake Total 840 Balance 840 - Medications Medications: Current Medications Albuterol/Ipratropium (Duoneb 3 Mg/0.5 Mg (3 Ml) Ud) 3 ml IH Q6H PRN PRN Reason: Shortness of Breath Bisacodyl (Dulcolax) 10 mg RC BID PRN PRN Reason: Constipation Heparin Sodium (Porcine) (Heparin) 5,000 units SC Q12 [facility] PRN Reason: Protocol Last Admin: 06/12/17 10:49 Dose: 5,000 units Magnesium Citrate (Citrate Of Mag) 300 ml PO ONCE ONE Stop: 06/13/17 10:01 Magnesium Hydroxide (Milk Of Magnesia) 30 ml PO DAILY PRN PRN Reason: Constipation Ondansetron HCl (Zofran Inj) 4 mg IVP Q4 PRN PRN Reason: Nausea/Vomiting Last Admin: 06/10/17 14:39 Dose: 4 mg Pantoprazole Sodium (Protonix Ec Tab) 40 mg PO 0600 [facility] Polyethylene Glycol (Miralax) 17 gm PO BID [facility] Last Admin: 06/12/17 17:32 Dose: Not Given - Labs Labs: 06/12/17 06:20 06/12/17 06:20 PT 11.0 SECONDS (9.4-12.5) 06/10/17 04:45 INR 0.97 (0.93-1.08) 06/10/17 04:45 APTT 28.1 Seconds (25.1-36.5) 06/10/17 04:45 - Constitutional Appears: Well - Head Exam Head Exam: ATRAUMATIC, NORMAL INSPECTION, NORMOCEPHALIC - Eye Exam Eye Exam: EOMI, Normal appearance, PERRL Pupil Exam: NORMAL ACCOMODATION, PERRL - ENT Exam ENT Exam: Mucous Membranes Moist, Normal Exam - Neck Exam Neck Exam: Full ROM, Normal Inspection. absent: Lymphadenopathy - Respiratory Exam Respiratory Exam: Clear to Ausculation Bilateral, NORMAL BREATHING PATTERN - Cardiovascular Exam Cardiovascular Exam: REGULAR RHYTHM, +S1, +S2. absent: Murmur - GI/Abdominal Exam GI & Abdominal Exam: Soft, Normal Bowel Sounds. absent: Tenderness - Extremities Exam Extremities Exam: Full ROM, Normal Capillary Refill, Normal Inspection. absent : Joint Swelling, Pedal Edema - Back Exam Back Exam: NORMAL INSPECTION - Neurological Exam Neurological Exam: Alert, Awake, CN II-XII Intact, Normal Gait, Oriented x3 - Psychiatric Exam Psychiatric exam: Normal Affect, Normal Mood - Skin Skin Exam: Dry, Intact, Normal Color, Warm Assessment and Plan - Assessment and Plan (Free Text) Assessment: 51F PMHx CP, SBO, colon polyps, overactive bladder, asthma, gastric intestinal metaplasia, +H. Pylori, chronic gastritis presents to ED complaining of nausea/ vomiting for 1 day. Admitted to med/surg for SBO vs chronic constipation SBO vs Chronic constipation - Miralax 17gm po bid; Toradol for pain; Zofran for nausea - GI: Dr. Ledezma - UGI series to rule out SMA syndrome: negative study - Supportive therapy - Will order CT Abdomen/Pelvis with PO/IV contrast for tomorrow - Surgery: Dr. Jorge - No surgical intervention at this time RLL pneumonia likely 2/2 Aspiration PNA - Unasyn 3gm ivpb q6 Hx of asthma - Duoneb 3ml inh q6 Hx of Cerebral Palsy - chronic- no acute issues GI ppx: Pepcid 40mg ivp qd DVT ppx: Heparin 5000u sc q12 Diet: NPO Fluids: NS @ 120cc/hr <Camilo Guillory - Last Filed: 06/13/17 11:04> Objective - Vital Signs/Intake and Output Vital Signs (last 24 hours): Temp Pulse Resp BP Pulse Ox 97.1 F L 76 16 87/52 L 100 06/13/17 07:30 06/13/17 07:30 06/13/17 07:30 06/13/17 07:30 06/13/17 07:30 Intake and Output: 06/13/17 06/13/17 06:59 18:59 Intake Total 120 Balance 120 - Medications Medications: Current Medications Albuterol/Ipratropium (Duoneb 3 Mg/0.5 Mg (3 Ml) Ud) 3 ml IH Q6H PRN PRN Reason: Shortness of Breath Bisacodyl (Dulcolax) 10 mg RC BID PRN PRN Reason: Constipation Heparin Sodium (Porcine) (Heparin) 5,000 units SC Q12 [facility] PRN Reason: Protocol Last Admin: 06/13/17 10:55 Dose: 5,000 units Magnesium Hydroxide (Milk Of Magnesia) 30 ml PO DAILY PRN PRN Reason: Constipation Ondansetron HCl (Zofran Inj) 4 mg IVP Q4 PRN PRN Reason: Nausea/Vomiting Last Admin: 06/10/17 14:39 Dose: 4 mg Pantoprazole Sodium (Protonix Ec Tab) 20 mg PO 0600 [facility] Polyethylene Glycol (Miralax) 17 gm PO BID [facility] Last Admin: 06/13/17 10:55 Dose: 17 gm - Labs Labs: 06/13/17 08:27 06/13/17 08:00 PT 11.0 SECONDS (9.4-12.5) 06/10/17 04:45 INR 0.97 (0.93-1.08) 06/10/17 04:45 APTT 28.1 Seconds (25.1-36.5) 06/10/17 04:45 Attending/Attestation - Attestation I have personally seen and examined this patient.: Yes I have fully participated in the care of the patient.: Yes I have reviewed all pertinent clinical information, including history, physical exam and plan: Yes Notes (Text): I have seen and examined the patient at bedside. Agree with the above note with the following additions/ exceptions: Briefly this is 51 year old female with history of recurrent SBO, colon polyps, neurogenic bladder, asthma, gastric intestinal metaplasia, Hpylori gastritis (not treated as she could not tolerate the treatment) who was admitted for evaluation of persistent nausea and vomiting for 1 day [employer] which was most likely secondary to SBO vs constipation. CT confirmed findings of distal SBO. Patient had abdominal soreness however abdomen was not tender nor distended. NGT was removed yesterday. LA level was normal. 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 Patient is scheduled to have GI series today. Patient is tolerating liquid diet. Denies any abdominal pain, nausea or vomiting. Patient appears very depressed and has been crying a lot. Comfort was provided. We offered psych consult. Patient is wiling to speak with psychiatrist. I have discussed in detail with Yani Wright as well. Upon discharge patient will follow up with Dr Wright. Dr Camilo Guillory
--- NOTE | 2017-06-12 22:10 | CON ---
DATE: 06/12/2017 PRESENTATION: The patient was admitted to the hospital on 06/10/2017 for abdominal pain and vomiting for 24 hours. Psychiatric consult was called on 06/12/2017 due to concerns about patient being depressed. Patient, initially when seen at bedtime, was very very upset. Patient has diagnosis of small bowel obstruction and cerebral palsy, and due to the cerebral palsy, she does not speak clearly. Patient yells, but is not able to enunciate. She does her communicating via a pad and a pen, writing her responses. Patient is upset, she is telling the nurses that she has been, for hours, waiting to go to a test and that she is hungry she is n.p.o. Evidently, she is supposed to go for an IVP and she has been waiting for hours and kept being told they were coming, they were coming and they have not come, so she has been very upset. She indicates to me once we are alone that she is really having a hard time here in the hospital. She does not feel like she is being treated well. She has not bathed yet today, that her sheets have not been changed in 2 days, that she is not being cared for properly, that when she was in the Emergency Room they made her feel like a dog, that they laughed at her when she asked for chocolate milk. Patient in general is just not feeling like she is being cared for well. Additionally, she has a roommate with a very very loud visitor, who evidently stays for the entire visiting time, so this is going on as well while I am trying to talk with her. 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 She indicates that she is happy with her life and with her job, and that she is always happy outside of the hospital, but the reason the doctor felt she was depressed is because she is upset about the way she is being treated here in the hospital. She indicates that she has never had any mental health issues in the past, never had any suicide attempts, never seen a psychiatrist, and never taken any psychiatric medication and sees no need for this now; but that she is not feeling like herself because she is so upset about the way things are going here in the hospital, and she tells me that she knows someone named , who is very high in the hospital evidently and she can complain to them. I told her that I would speak with the charge nurse and let her know her concerns and get the patient career professional to come so that she can air her concerns in a proper form, and patient was satisfied with this. CURRENT VITAL SIGNS: Include temperature of 97.4, pulse rate of 76, blood pressure of 109/66, respiratory rate of 18, and O2 sat of 97%. Her white blood cells, which had been 14 as mentioned, has normalized. Her urine and blood cultures, all have come back negative. MEDICATIONS: Include albuterol, heparin, Zofran, Protonix, and MiraLax. MENTAL STATUS EXAMINATION: The patient is alert and oriented x 3. Her eye contact is good. She uses her face and her hands and noises to express herself as well as writing on a pad how she is feeling. She is fairly clear and her thoughts are logical. Her mood is angry. Her affect is constricted. Her thoughts are goal directed. She denies being suicidal or homicidal. Denies the presence of hallucinations, delusions, or paranoia. Her concentration and her focus appear to be good. Her memory, both short and terminal operations supervisor, appears to be adequate. Her appetite and her sleep, she indicates, are normalizing. DIAGNOSTIC IMPRESSION: Adjustment disorder with anxiety. PLAN: The patient denies being suicidal or homicidal and appears in no imminent danger of hurting herself or others. She denies the need for any ongoing psychiatric care. She indicates that she has done well in her life and that her problem really is the way she is being treated in the hospital. I reassured her that it sounds as if her complaints may be valid, that I would speak with the charge nurse in regards to getting her cared for properly as well as having the patient career professional come so that she can air her concerns to the appropriate person. Patient is very pleased with this, denies any further need for psychiatric services. Psychiatry will sign off. Thank you for the consult. Courtney Persaud APN [facility] # [id number]
[2017-06-13] MEDS ORDERED: Pantoprazole 40 mg EC Tab PO SCH ×2 (06:00→07:55)
--- NOTE | 2017-06-13 08:07 | CP.PCM.PN ---
Subjective - Date & Time of Evaluation Date of Evaluation: 06/13/17 Time of Evaluation: 08:04 - Subjective Subjective: Surgery: Dr. Jorge Pt seen and examined. Pt had BM yesterday. Abd pain is improved. Has mild nausea but states that she is hungry and would like to eat. Pt states that she takes protonix 20mg daily at home, but is currently getting 40mng daily and would like this switched. Objective - Vital Signs/Intake and Output Vital Signs (last 24 hours): Temp Pulse Resp BP Pulse Ox 97.3 F L 58 L 16 107/74 97 06/12/17 22:17 06/12/17 22:17 06/12/17 22:17 06/12/17 22:17 06/12/17 22:17 Intake and Output: 06/13/17 06/13/17 06:59 18:59 Intake Total 120 Balance 120 - Medications Medications: Current Medications Albuterol/Ipratropium (Duoneb 3 Mg/0.5 Mg (3 Ml) Ud) 3 ml IH Q6H PRN PRN Reason: Shortness of Breath Bisacodyl (Dulcolax) 10 mg RC BID PRN PRN Reason: Constipation Heparin Sodium (Porcine) (Heparin) 5,000 units SC Q12 [facility] PRN Reason: Protocol Last Admin: 06/12/17 21:44 Dose: 5,000 units Magnesium Citrate (Citrate Of Mag) 300 ml PO ONCE ONE Stop: 06/13/17 10:01 Magnesium Hydroxide (Milk Of Magnesia) 30 ml PO DAILY PRN PRN Reason: Constipation Ondansetron HCl (Zofran Inj) 4 mg IVP Q4 PRN PRN Reason: Nausea/Vomiting Last Admin: 06/10/17 14:39 Dose: 4 mg Pantoprazole Sodium (Protonix Ec Tab) 20 mg PO 0600 [facility] Polyethylene Glycol (Miralax) 17 gm PO BID [facility] Last Admin: 06/12/17 17:32 Dose: Not Given - Labs Labs: 06/12/17 06:20 06/12/17 06:20 PT 11.0 SECONDS (9.4-12.5) 06/10/17 04:45 INR 0.97 (0.93-1.08) 06/10/17 04:45 APTT 28.1 Seconds (25.1-36.5) 06/10/17 04:45 - Constitutional Appears: Non-toxic, No Acute Distress - Head Exam Head Exam: ATRAUMATIC, NORMOCEPHALIC - Eye Exam Eye Exam: EOMI Pupil Exam: NORMAL ACCOMODATION - ENT Exam ENT Exam: Mucous Membranes Moist - Neck Exam Neck Exam: Full ROM - Respiratory Exam Respiratory Exam: NORMAL BREATHING PATTERN. absent: Accessory Muscle Use, Respiratory Distress - GI/Abdominal Exam GI & Abdominal Exam: Soft. absent: Distended, Firm, Guarding, Tenderness, Rebound - Extremities Exam Extremities Exam: absent: Calf Tenderness, Pedal Edema - Neurological Exam Neurological Exam: Alert, Awake, Oriented x3 - Skin Skin Exam: Dry, Normal Color, Warm Assessment and Plan - Assessment and Plan (Free Text) Assessment: 51F w. abd pain likely 2/2 constipation Plan: -UGI series negative for SMA syndrome, will f/u results of CTA -pt having BM, c/w bowel regimen -protonix adjusted 20mg daily -c/w anti-emetics -will continue to follow -d/w attending Phanitis PGY3
[2017-06-13 08:37] LABS: BASO # 0.05 K/mm3 (0.0-2.0); BASO % 0.9 % (0.0-3.0); EOS # 0.2 (0.0-0.7); EOS % 3.4 % (1.5-5.0); GRAN # 3.79 (1.4-6.5); GRAN % 67.2 % (50.0-68.0); HEMOGLOBIN 14.8 g/dL (12.0-16.0); LYMPH # 1.2 (1.2-3.4); LYMPH % 21.8 % (22.0-35.0); MEAN CELL VOLUME 93.2 fl (80.0-105.0); MEAN CORPUSCULAR HEMOGLOBIN 31.5 pg (25.0-35.0); MEAN CORPUSCULAR HGB CONC 33.8 g/dl (31.0-37.0); MEAN PLATELET VOLUME 10.5 fl (7.0-11.0); MONO # 0.4 (0.1-0.6); MONO % 6.7 % (1.0-6.0); RBC 4.7 10^6/uL (3.5-6.1); RED CELL DISTRIBUTION WIDTH 12.1 % (11.5-14.5); WHITE BLOOD COUNT 5.6 10^3/ul (4.5-11.0)
[2017-06-13 09:15] LABS: ALB/GLOB RATIO 1.4 (1.1-1.8); ALT/SGPT 29 U/L (7-56); AST/SGOT 34 U/L (14-36); BLOOD UREA NITROGEN 15 mg/dL (7-21); CALCIUM 9.6 mg/dL (8.4-10.5); GFR AFRICAN-AMERICAN > 60; GFR NON-AFRICAN AMERICAN > 60
[2017-06-13] MEDS ORDERED: Magnesium Citrate Oral SOL (300 ml) PO ONE (10:00)
[2017-06-13] MEDS: POLYETHYLENE GLYCOL 3350 17 GM/Dose PACKET PO SCH ×2 (10:55→17:34)
--- NOTE | 2017-06-13 12:41 | CP.PCM.PN ---
<Misbah Hussein Terri - Last Filed: 06/13/17 12:50> Subjective - Date & Time of Evaluation Date of Evaluation: 06/13/17 Time of Evaluation: 12:37 - Subjective Subjective: Medicine progress note: Dr. Koki Guillory Patient seen and examined at bedside, she is doing well and feels better from yesterday, is tolerating soft diet well. Patient is aware of her CT Abdomen Pelvis to be done today Objective - Vital Signs/Intake and Output Vital Signs (last 24 hours): Temp Pulse Resp BP Pulse Ox 97.1 F L 76 16 87/52 L 100 06/13/17 07:30 06/13/17 07:30 06/13/17 07:30 06/13/17 07:30 06/13/17 07:30 Intake and Output: 06/13/17 06/13/17 06:59 18:59 Intake Total 120 Balance 120 - Medications Medications: Current Medications Albuterol/Ipratropium (Duoneb 3 Mg/0.5 Mg (3 Ml) Ud) 3 ml IH Q6H PRN PRN Reason: Shortness of Breath Bisacodyl (Dulcolax) 10 mg RC BID PRN PRN Reason: Constipation Heparin Sodium (Porcine) (Heparin) 5,000 units SC Q12 [facility] PRN Reason: Protocol Last Admin: 06/13/17 10:55 Dose: 5,000 units Magnesium Hydroxide (Milk Of Magnesia) 30 ml PO DAILY PRN PRN Reason: Constipation Ondansetron HCl (Zofran Inj) 4 mg IVP Q4 PRN PRN Reason: Nausea/Vomiting Last Admin: 06/10/17 14:39 Dose: 4 mg Pantoprazole Sodium (Protonix Ec Tab) 20 mg PO 0600 [facility] Polyethylene Glycol (Miralax) 17 gm PO BID [facility] Last Admin: 06/13/17 10:55 Dose: 17 gm - Labs Labs: 06/13/17 08:27 06/13/17 08:00 PT 11.0 SECONDS (9.4-12.5) 06/10/17 04:45 INR 0.97 (0.93-1.08) 06/10/17 04:45 APTT 28.1 Seconds (25.1-36.5) 06/10/17 04:45 - Constitutional Appears: Well - Head Exam Head Exam: ATRAUMATIC, NORMAL INSPECTION, NORMOCEPHALIC - Eye Exam Eye Exam: EOMI, Normal appearance, PERRL Pupil Exam: NORMAL ACCOMODATION, PERRL - ENT Exam ENT Exam: Mucous Membranes Moist, Normal Exam - Neck Exam Neck Exam: Full ROM, Normal Inspection. absent: Lymphadenopathy - Respiratory Exam Respiratory Exam: Clear to Ausculation Bilateral, NORMAL BREATHING PATTERN - Cardiovascular Exam Cardiovascular Exam: REGULAR RHYTHM, +S1, +S2. absent: Murmur - GI/Abdominal Exam GI & Abdominal Exam: Soft, Normal Bowel Sounds. absent: Tenderness - Extremities Exam Extremities Exam: Full ROM, Normal Capillary Refill, Normal Inspection. absent : Joint Swelling, Pedal Edema - Back Exam Back Exam: NORMAL INSPECTION - Neurological Exam Neurological Exam: Alert, Awake, CN II-XII Intact, Normal Gait, Oriented x3 - Psychiatric Exam Psychiatric exam: Normal Affect, Normal Mood - Skin Skin Exam: Dry, Intact, Normal Color, Warm Assessment and Plan - Assessment and Plan (Free Text) Assessment: 51F PMHx CP, SBO, colon polyps, overactive bladder, asthma, gastric intestinal metaplasia, +H. Pylori, chronic gastritis presents to ED complaining of nausea/ vomiting for 1 day. Admitted to med/surg for SBO vs chronic constipation SBO vs Chronic constipation - Miralax 17gm po bid; Toradol for pain; Zofran for nausea; Dulcolax prn - GI: Dr. Ledezma - UGI series to rule out SMA syndrome: negative study - Supportive therapy - CT Abdomen/Pelvis with PO/IV contrast for today: f/u - Surgery: Dr. Jorge - No surgical intervention at this time, will await GI recommendations and CT Abdomen/pelvis Possible depression - Psychiatry consult: Dr. Weston - Psychiatry states no need for acute intervention, has signed off RLL pneumonia likely 2/2 Aspiration PNA - Unasyn 3gm ivpb q6 Hx of asthma - Duoneb 3ml inh q6 Hx of Cerebral Palsy - chronic- no acute issues GI ppx: Pepcid 40mg ivp qd DVT ppx: Heparin 5000u sc q12 Diet: Advanced to soft today <Camilo Guillory B - Last Filed: 06/13/17 13:03> Objective - Vital Signs/Intake and Output Vital Signs (last 24 hours): Temp Pulse Resp BP Pulse Ox 97.1 F L 76 16 87/52 L 100 06/13/17 07:30 06/13/17 07:30 06/13/17 07:30 06/13/17 07:30 06/13/17 07:30 Intake and Output: 06/13/17 06/13/17 06:59 18:59 Intake Total 120 Balance 120 - Medications Medications: Current Medications Albuterol/Ipratropium (Duoneb 3 Mg/0.5 Mg (3 Ml) Ud) 3 ml IH Q6H PRN PRN Reason: Shortness of Breath Bisacodyl (Dulcolax) 10 mg RC BID PRN PRN Reason: Constipation Heparin Sodium (Porcine) (Heparin) 5,000 units SC Q12 [facility] PRN Reason: Protocol Last Admin: 06/13/17 10:55 Dose: 5,000 units Magnesium Hydroxide (Milk Of Magnesia) 30 ml PO DAILY PRN PRN Reason: Constipation Ondansetron HCl (Zofran Inj) 4 mg IVP Q4 PRN PRN Reason: Nausea/Vomiting Last Admin: 06/10/17 14:39 Dose: 4 mg Pantoprazole Sodium (Protonix Ec Tab) 20 mg PO 0600 [facility] Polyethylene Glycol (Miralax) 17 gm PO BID [facility] Last Admin: 06/13/17 10:55 Dose: 17 gm - Labs Labs: 06/13/17 08:27 06/13/17 08:00 PT 11.0 SECONDS (9.4-12.5) 06/10/17 04:45 INR 0.97 (0.93-1.08) 06/10/17 04:45 APTT 28.1 Seconds (25.1-36.5) 06/10/17 04:45 Attending/Attestation - Attestation I have personally seen and examined this patient.: Yes I have fully participated in the care of the patient.: Yes I have reviewed all pertinent clinical information, including history, physical exam and plan: Yes Notes (Text): I have seen and examined the patient at bedside. Agree with the above note with the following additions/ exceptions: Briefly this is 51 year old female with history of recurrent SBO, colon polyps, neurogenic bladder, asthma, gastric intestinal metaplasia, Hpylori gastritis (not treated as she could not tolerate the treatment) who was admitted for evaluation of persistent nausea and vomiting for 1 day [employer] which was most likely secondary to SBO vs constipation. CT confirmed findings of distal SBO. NGT was removed. LA level was normal. 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 GI series was normal. CTA pending. Patient is tolerating soft diet. Denies any abdominal pain, nausea or vomiting. Patient appears much better in terms of her mood. Denies depression or suicidal ideation. Psych consult appreciated. I have updated patients PMD as well. Upon discharge patient will follow up with Dr Wright. Dr Camilo Guillory
--- NOTE | 2017-06-13 13:34 | CP.PCM.PN ---
<Michael Lisa - Last Filed: 06/13/17 13:36> Subjective - Date & Time of Evaluation Date of Evaluation: 06/13/17 Time of Evaluation: 07:30 - Subjective Subjective: GI Fellow PGY 4 Progress Note Pt seen and evaluated at bedside pt doing better this morning Pt had 2 BM since yesterday. tolerated clears tolerated sift diet ROS: A 12pt ROS was negative except as above. Objective - Vital Signs/Intake and Output Vital Signs (last 24 hours): Temp Pulse Resp BP Pulse Ox 97.1 F L 76 16 87/52 L 100 06/13/17 07:30 06/13/17 07:30 06/13/17 07:30 06/13/17 07:30 06/13/17 07:30 Intake and Output: 06/13/17 06/13/17 06:59 18:59 Intake Total 120 Balance 120 - Medications Medications: Current Medications Albuterol/Ipratropium (Duoneb 3 Mg/0.5 Mg (3 Ml) Ud) 3 ml IH Q6H PRN PRN Reason: Shortness of Breath Bisacodyl (Dulcolax) 10 mg RC BID PRN PRN Reason: Constipation Heparin Sodium (Porcine) (Heparin) 5,000 units SC Q12 [facility] PRN Reason: Protocol Last Admin: 06/13/17 10:55 Dose: 5,000 units Magnesium Hydroxide (Milk Of Magnesia) 30 ml PO DAILY PRN PRN Reason: Constipation Ondansetron HCl (Zofran Inj) 4 mg IVP Q4 PRN PRN Reason: Nausea/Vomiting Last Admin: 06/10/17 14:39 Dose: 4 mg Pantoprazole Sodium (Protonix Ec Tab) 20 mg PO 0600 [facility] Polyethylene Glycol (Miralax) 17 gm PO BID [facility] Last Admin: 06/13/17 10:55 Dose: 17 gm - Labs Labs: 06/13/17 08:27 06/13/17 08:00 PT 11.0 SECONDS (9.4-12.5) 06/10/17 04:45 INR 0.97 (0.93-1.08) 06/10/17 04:45 APTT 28.1 Seconds (25.1-36.5) 06/10/17 04:45 - Constitutional Appears: Well, No Acute Distress - Head Exam Head Exam: ATRAUMATIC, NORMOCEPHALIC - Eye Exam Eye Exam: EOMI, Normal appearance Pupil Exam: NORMAL ACCOMODATION - ENT Exam ENT Exam: Mucous Membranes Moist, Normal Exam - Neck Exam Neck Exam: Normal Inspection - Respiratory Exam Respiratory Exam: Clear to Ausculation Bilateral, NORMAL BREATHING PATTERN. absent: Prolonged Expiratory Phase, Rales, Rhonchi, Wheezes - Cardiovascular Exam Cardiovascular Exam: REGULAR RHYTHM, +S1, +S2 - GI/Abdominal Exam GI & Abdominal Exam: Soft, Normal Bowel Sounds. absent: Guarding, Rigid, Tenderness, Hernia, Mass - Extremities Exam Extremities Exam: absent: Joint Swelling, Pedal Edema - Neurological Exam Neurological Exam: Alert, Awake, Oriented x3 - Psychiatric Exam Psychiatric exam: Normal Affect, Normal Mood - Skin Skin Exam: Dry, Intact, Normal Color, Warm Assessment and Plan - Assessment and Plan (Free Text) Assessment: This is a 51 yr old F with cerebral palsy and past SBO with ex lap admitted with worsening abdominal pain, nausea and hard stools. CTAP with dilated small bowle loops and stool in the colon. 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 Pylori Constipation SBO, closed loop (resolved) Plan: -Continue supportive care with anti-emetics - CT Imaging reviewed, concern for possible SMAS? - can advance diet as tolerated - Miralax bid as home - PPI omeprazole 20mg daily - Anti emetics as needed - Upper GI series with small bowel follow through was neg for obstruction and SMA - CTA pending - follow-up with Dr. Ledezma as an oupt D/W Dr. Ledezma <Nai Ledezma - Last Filed: 06/13/17 14:40> Objective - Vital Signs/Intake and Output Vital Signs (last 24 hours): Temp Pulse Resp BP Pulse Ox 97.1 F L 76 16 87/52 L 100 06/13/17 07:30 06/13/17 07:30 06/13/17 07:30 06/13/17 07:30 06/13/17 07:30 Intake and Output: 06/13/17 06/13/17 06:59 18:59 Intake Total 120 Balance 120 - Medications Medications: Current Medications Albuterol/Ipratropium (Duoneb 3 Mg/0.5 Mg (3 Ml) Ud) 3 ml IH Q6H PRN PRN Reason: Shortness of Breath Bisacodyl (Dulcolax) 10 mg RC BID PRN PRN Reason: Constipation Heparin Sodium (Porcine) (Heparin) 5,000 units SC Q12 [facility] PRN Reason: Protocol Last Admin: 06/13/17 10:55 Dose: 5,000 units Magnesium Hydroxide (Milk Of Magnesia) 30 ml PO DAILY PRN PRN Reason: Constipation Ondansetron HCl (Zofran Inj) 4 mg IVP Q4 PRN PRN Reason: Nausea/Vomiting Last Admin: 06/10/17 14:39 Dose: 4 mg Pantoprazole Sodium (Protonix Ec Tab) 20 mg PO 0600 [facility] Polyethylene Glycol (Miralax) 17 gm PO BID [facility] Last Admin: 06/13/17 10:55 Dose: 17 gm - Labs Labs: 06/13/17 08:27 06/13/17 08:00 PT 11.0 SECONDS (9.4-12.5) 06/10/17 04:45 INR 0.97 (0.93-1.08) 06/10/17 04:45 APTT 28.1 Seconds (25.1-36.5) 06/10/17 04:45 Attending/Attestation - Attestation I have personally seen and examined this patient.: Yes I have fully participated in the care of the patient.: Yes I have reviewed all pertinent clinical information, including history, physical exam and plan: Yes Notes (Text): 06/13/17 14:39 This is a 51 yr old F with cerebral palsy and past SBO with ex lap admitted with worsening abdominal pain, nausea and hard stools. CTAP with dilated small bowel loops and stool in the colon. s/p EGD which revealed an extrinsically stensoses of 3rd portion of duodenum and gastric erosions. Upper Gi series unremarkable. Will do CT angiogram which is pending. Had 2 BM/last night. Continue supportive care with anti-emetics. Continue po clears and Miralax bid with PPI. Anti emetics as needed. Will follow closely
[2017-06-13 23:18] VITALS: O2SAT 97
[2017-06-14] MEDS ORDERED: Pantoprazole 20 mg EC Tab PO SCH (06:17)
--- NOTE | 2017-06-14 07:28 | CP.PCM.PN ---
<Micheal Lisa - Last Filed: 06/14/17 11:37> Subjective - Date & Time of Evaluation Date of Evaluation: 06/14/17 Time of Evaluation: 06:45 - Subjective Subjective: GI Fellow PGY 4 Progress Note Pt seen and evaluated at bedside She refused the CT yesterday Pt had 2-3 BM since yesterday. tolerated clears tolerating soft diet ROS: A 12pt ROS was negative except as above. Objective - Vital Signs/Intake and Output Vital Signs (last 24 hours): Temp Pulse Resp BP Pulse Ox 97.2 F L 61 20 94/58 L 97 06/13/17 22:00 06/13/17 22:00 06/13/17 22:00 06/13/17 22:00 06/13/17 22:00 Intake and Output: 06/14/17 06/14/17 06:59 18:59 Intake Total 540 0 Balance 540 0 - Medications Medications: Current Medications Albuterol/Ipratropium (Duoneb 3 Mg/0.5 Mg (3 Ml) Ud) 3 ml IH Q6H PRN PRN Reason: Shortness of Breath Bisacodyl (Dulcolax) 10 mg RC BID PRN PRN Reason: Constipation Heparin Sodium (Porcine) (Heparin) 5,000 units SC Q12 [facility] PRN Reason: Protocol Last Admin: 06/13/17 22:47 Dose: 5,000 units Magnesium Hydroxide (Milk Of Magnesia) 30 ml PO DAILY PRN PRN Reason: Constipation Ondansetron HCl (Zofran Inj) 4 mg IVP Q4 PRN PRN Reason: Nausea/Vomiting Last Admin: 06/10/17 14:39 Dose: 4 mg Pantoprazole Sodium (Protonix Ec Tab) [address] [facility] Polyethylene Glycol (Miralax) [address] [facility] Last Admin: 06/13/17 17:34 Dose: Not Given - Labs Labs: 06/13/17 08:27 06/13/17 08:00 PT 11.0 SECONDS (9.4-12.5) 06/10/17 04:45 INR 0.97 (0.93-1.08) 06/10/17 04:45 APTT 28.1 Seconds (25.1-36.5) 06/10/17 04:45 - Constitutional Appears: Well, No Acute Distress - Head Exam Head Exam: ATRAUMATIC, NORMOCEPHALIC - Eye Exam Eye Exam: Normal appearance - ENT Exam ENT Exam: Mucous Membranes Moist, Normal Exam - Neck Exam Neck Exam: Normal Inspection - Respiratory Exam Respiratory Exam: Clear to Ausculation Bilateral, NORMAL BREATHING PATTERN. absent: Rales, Rhonchi, Wheezes, Respiratory Distress - Cardiovascular Exam Cardiovascular Exam: REGULAR RHYTHM, +S1, +S2 - GI/Abdominal Exam GI & Abdominal Exam: Soft, Normal Bowel Sounds. absent: Guarding, Rigid, Tenderness, Organomegaly - Extremities Exam Extremities Exam: absent: Joint Swelling, Pedal Edema - Neurological Exam Neurological Exam: Alert, Awake, Oriented x3 - Psychiatric Exam Psychiatric exam: Normal Affect, Normal Mood - Skin Skin Exam: Dry, Intact, Normal Color, Warm Assessment and Plan - Assessment and Plan (Free Text) Assessment: This is a 51 yr old F with cerebral palsy and past SBO with ex lap admitted with worsening abdominal pain, nausea and hard stools. CTAP with dilated small bowle loops and stool in the colon. 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 Pylori Constipation SBO, closed loop (resolved) Plan: -Continue supportive care with anti-emetics - CT Imaging reviewed, concern for possible SMAS? - can advance diet as tolerated - Miralax daily at home - PPI omeprazole 20mg daily - Anti emetics as needed - Upper GI series with small bowel follow through was neg for obstruction and SMA - CTA pending, pt refused yesterday - follow-up at office as outpt Will D/W Dr. Ledezma <Nai Ledezma - Last Filed: 06/14/17 15:20> Objective - Vital Signs/Intake and Output Vital Signs (last 24 hours): Temp Pulse Resp BP Pulse Ox 98.8 F 59 L 18 112/72 97 06/14/17 07:30 06/14/17 07:30 06/14/17 07:30 06/14/17 07:30 06/14/17 07:30 Intake and Output: 06/14/17 06/14/17 06:59 18:59 Intake Total 540 0 Balance 540 0 - Labs Labs: 06/14/17 07:00 06/14/17 07:00 PT 11.0 SECONDS (9.4-12.5) 06/10/17 04:45 INR 0.97 (0.93-1.08) 06/10/17 04:45 APTT 28.1 Seconds (25.1-36.5) 06/10/17 04:45 Attending/Attestation - Attestation I have personally seen and examined this patient.: Yes I have fully participated in the care of the patient.: Yes I have reviewed all pertinent clinical information, including history, physical exam and plan: Yes Notes (Text): 06/14/17 15:18 Patient seen at bedside. This is a 51 yr old F with cerebral palsy and past SBO with ex lap admitted with worsening abdominal pain, nausea and hard stools. CTAP with dilated small bowel loops and stool in the colon. s/p EGD which revealed an extrinsically stensoses 3rd portion of duodenum and gastric erosions with negative upper GI series. CTA pending today. states abdominal pain has resolved. Moving bowels. Recommend small frequent meals and PPi daily with laxatives.
[2017-06-14 07:30] LABS: BASO # 0.04 K/mm3 (0.0-2.0); BASO % 0.6 % (0.0-3.0); EOS # 0.2 (0.0-0.7); EOS % 3.5 % (1.5-5.0); GRAN # 3.89 (1.4-6.5); GRAN % 59.8 % (50.0-68.0); HEMOGLOBIN 14.8 g/dL (12.0-16.0); MEAN CELL VOLUME 92.6 fl (80.0-105.0); MEAN CORPUSCULAR HEMOGLOBIN 31.4 pg (25.0-35.0); MEAN CORPUSCULAR HGB CONC 33.9 g/dl (31.0-37.0); MEAN PLATELET VOLUME 9.8 fl (7.0-11.0); MONO # 0.4 (0.1-0.6); MONO % 6.1 % (1.0-6.0); RBC 4.71 10^6/uL (3.5-6.1); RED CELL DISTRIBUTION WIDTH 12.3 % (11.5-14.5); WHITE BLOOD COUNT 6.5 10^3/ul (4.5-11.0)
[2017-06-14 07:58] LABS: ALB/GLOB RATIO 1.3 (1.1-1.8); ALBUMIN 4.1 g/dL (3.0-4.8); ALT/SGPT 40 U/L (7-56); AST/SGOT 35 U/L (14-36); BLOOD UREA NITROGEN 17 mg/dL (7-21); CALCIUM 9.7 mg/dL (8.4-10.5); GFR AFRICAN-AMERICAN > 60; GFR NON-AFRICAN AMERICAN > 60
[2017-06-14] MEDS ORDERED: Iohexol 350 MG/100 ML VIAL ONE (09:20)
[2017-06-14 09:46] VITALS: BP 112/72; PULSE 59; RESP 18; TEMP 98.8
[2017-06-14] MEDS ORDERED: POLYETHYLENE GLYCOL 3350 17 GM/Dose PACKET PO SCH (10:00)
--- NOTE | 2017-06-14 10:37 | CT ---
PROCEDURE: CT Abdomen and Pelvis with contrast HISTORY: r/o SMA COMPARISON: Comparison is made to the previous study dated 06/10/2017 TECHNIQUE: Contrast dose: 100 mL of Omnipaque 350. Axial and reformatted coronal and sagittal CT images of the abdomen and pelvis were obtained after IV and oral contrast administration. Radiation dose: Total exam DLP = 192.53 mGy-cm. This CT exam was performed using one or more of the following dose reduction techniques: Automated exposure control, adjustment of the mA and/or kV according to patient size, and/or use of iterative reconstruction technique. FINDINGS: LOWER THORAX: No evidence of acute pathology at the lung bases. Mild atelectasis noted at the lung bases. LIVER: The liver enhance image densely. Mild enlargement of the liver is noted. No evidence of enhancing mass lesion. The portal vein is patent. GALLBLADDER AND BILE DUCTS: No evidence of cholecystitis. Mild thickening and enhancement of the gallbladder wall is noted. PANCREAS: Unremarkable. No gross lesion or ductal dilatation. SPLEEN: Unremarkable. ADRENALS: No suspicious mass noted in the adrenal glands. KIDNEYS AND URETERS: Unremarkable. No hydronephrosis. No solid mass. VASCULATURE: The abdominal aorta is normal in caliber and shape. The celiac trunk and SMA are patent. There is no evidence of significant stenosis in the SMA noted in this suboptimal study. BOWEL: There is very high density oral contrast in the large bowel. Streak artifact from the high-density contrast in the large bowel somewhat limits the evaluation of the abdomen and pelvis. No evidence of high-grade bowel obstruction. No evidence of pneumatosis. The stomach is mildly to moderately distended demonstrate diffuse wall thickening. APPENDIX: There is no evidence of appendicitis. PERITONEUM: Unremarkable. No free fluid. No free air. LYMPH NODES: Unremarkable. No enlarged lymph nodes. BLADDER: Unremarkable. REPRODUCTIVE: Unremarkable. BONES: No acute fracture. OTHER FINDINGS: None. IMPRESSION: Limited assessment due to streak artifact from very high density oral contrast in the large bowel. No evidence of stenosis or occlusion in the celiac and superior mesenteric arteries. Interval resolving of the previously seen moderate constipation and dilated large bowel.
--- NOTE | 2017-06-14 12:13 | CP.PCM.DIS ---
<Misbah Hussein - Last Filed: 06/14/17 17:11> Provider - Provider Date of Admission: 06/10/17 11:25 Attending physician: Camilo Guillory MD Consults: Surg: Dr. Jorge GI: Dr. Vargas Psych: Dr. Daigle Time Spent in preparation of Discharge (in minutes): 45 Hospital Course - Lab Results Lab Results: Most Recent Lab Values WBC 6.5 10^3/ul (4.5-11.0) 06/14/17 07:00 RBC 4.71 10^6/uL (3.5-6.1) 06/14/17 07:00 Hgb 14.8 g/dL (12.0-16.0) 06/14/17 07:00 Hct 43.6 % (36.0-48.0) 06/14/17 07:00 MCV 92.6 fl (80.0-105.0) 06/14/17 07:00 MCH 31.4 pg (25.0-35.0) 06/14/17 07:00 MCHC 33.9 g/dl (31.0-37.0) 06/14/17 07:00 RDW 12.3 % (11.5-14.5) 06/14/17 07:00 Plt Count 250 10^3/uL (120.0-450.0) 06/14/17 07:00 MPV 9.8 fl (7.0-11.0) 06/14/17 07:00 Gran % 59.8 % (50.0-68.0) 06/14/17 07:00 Lymph % (Auto) 30.0 % (22.0-35.0) 06/14/17 07:00 [place] % (Auto) 6.1 % (1.0-6.0) H 06/14/17 07:00 Eos % (Auto) 3.5 % (1.5-5.0) 06/14/17 07:00 Baso % (Auto) 0.6 % (0.0-3.0) 06/14/17 07:00 Gran # 3.89 (1.4-6.5) 06/14/17 07:00 Lymph # (Auto) 2.0 (1.2-3.4) 06/14/17 07:00 [place] # (Auto) 0.4 (0.1-0.6) 06/14/17 07:00 Eos # (Auto) 0.2 (0.0-0.7) 06/14/17 07:00 Baso # (Auto) 0.04 K/mm3 (0.0-2.0) 06/14/17 07:00 Neutrophils % (Manual) 88 % (50.0-70.0) H 06/10/17 04:45 Band Neutrophils % 2 % (0-2) 06/10/17 04:45 Lymphocytes % (Manual) 9 % (22.0-35.0) L 06/10/17 04:45 Monocytes % (Manual) TEST NOT PERFORMED 06/10/17 04:45 Basophils % (Manual) 1 % (0.0-1.0) 06/10/17 04:45 Platelet Evaluation Normal (NORMAL) 06/10/17 04:45 PT 11.0 SECONDS (9.4-12.5) 06/10/17 04:45 INR 0.97 (0.93-1.08) 06/10/17 04:45 APTT 28.1 Seconds (25.1-36.5) 06/10/17 04:45 pO2 235 mm/Hg (30-55) H 06/10/17 07:49 VBG pH 7.42 (7.32-7.43) 06/10/17 07:49 VBG pCO2 46.0 (40-60) 06/10/17 07:49 VBG HCO3 29.8 mmol/l (21-28) H 06/10/17 07:49 VBG Total CO2 31.2 mmol.L (22-28) H 06/10/17 07:49 VBG O2 Sat (Calc) 100.0 % (40-65) H 06/10/17 07:49 VBG Base Excess 4.5 mmol/L (0.0-2.0) H 06/10/17 07:49 VBG Potassium 3.7 mmol/L (3.6-5.2) 06/10/17 07:49 Sodium 138.0 mmol/L (132-148) 06/10/17 07:49 Chloride 107.0 mmol/L (98-107) 06/10/17 07:49 Glucose 114 mg/dl (65-105) H 06/10/17 07:49 Lactate 0.9 mmol/L (0.7-2.1) 06/10/17 07:49 FiO2 21.0 % 06/10/17 07:49 Sodium 142 mmol/L (132-148) 06/14/17 07:00 Potassium 4.1 mmol/L (3.6-5.0) 06/14/17 07:00 Chloride 103 mmol/L (98-107) 06/14/17 07:00 Carbon Dioxide 29 mmol/L (21-33) 06/14/17 07:00 Anion Gap 14 (10-20) 06/14/17 07:00 BUN 17 mg/dL (7-21) 06/14/17 07:00 Creatinine 0.6 mg/dl (0.7-1.2) L 06/14/17 07:00 Est GFR ( Amer) > 60 06/14/17 07:00 Est GFR (Non-Af Amer) > 60 06/14/17 07:00 Random Glucose 91 mg/dL (70-110) 06/14/17 07:00 Calcium 9.7 mg/dL (8.4-10.5) 06/14/17 07:00 Phosphorus 3.6 mg/dL (2.5-4.5) 06/13/17 08:00 Magnesium 2.5 mg/dL (1.7-2.2) H 06/13/17 08:00 Total Bilirubin 0.5 mg/dL (0.2-1.3) 06/14/17 07:00 AST 35 U/L (14-36) 06/14/17 07:00 ALT 40 U/L (7-56) 06/14/17 07:00 Alkaline Phosphatase 110 U/L (38-126) 06/14/17 07:00 Lactate Dehydrogenase 493 U/L (333-699) 06/10/17 04:45 Total Creatine Kinase 56 U/L (35-230) 06/10/17 04:45 Troponin I < 0.01 ng/mL 06/10/17 04:45 Total Protein 7.1 g/dL (5.8-8.3) 06/14/17 07:00 Albumin 4.1 g/dL (3.0-4.8) 06/14/17 07:00 Globulin 3.0 gm/dL 06/14/17 07:00 Albumin/Globulin Ratio 1.3 (1.1-1.8) 06/14/17 07:00 Amylase 82 U/L (35-125) 06/10/17 04:45 Lipase 309 U/L (23-300) H 06/10/17 04:45 Procalcitonin < 0.05 NG/ML (0.19-0.49) L 06/10/17 12:05 Venous Blood Potassium 3.7 mmol/L (3.6-5.2) 06/10/17 07:49 Urine Color Yellow (YELLOW) 06/10/17 09:30 Urine Appearance Clear (CLEAR) 06/10/17 09:30 Urine pH 7.5 (4.7-8.0) 06/10/17 09:30 Ur Specific [place] 1.015 (1.005-1.035) 06/10/17 09:30 Urine Protein Negative mg/dL (<30 mg/dL) 06/10/17 09:30 Urine Glucose (UA) Negative mg/dL (NEGATIVE) 06/10/17 09:30 Urine Ketones Trace mg/dL (NEGATIVE) H 06/10/17 09:30 Urine Blood Negative (NEGATIVE) 06/10/17 09:30 Urine Nitrate Negative (NEGATIVE) 06/10/17 09:30 Urine Bilirubin Negative (NEGATIVE) 06/10/17 09:30 Urine Urobilinogen 0.2 E.U./dL (<1 E.U./dL) 06/10/17 09:30 Ur Leukocyte Esterase Negative [place]/uL (NEGATIVE) 06/10/17 09:30 - Hospital Course Hospital Course: Ms. Schmidt presented to ED complaining of nausea/vomiting for 1 day. She began vomiting the day before and vomited 20 times nonbloody nonbilious stomach contents. She has a hx of gastritis and has had issues with constipation, partial bowel obstruction, and vomiting three times in the past. She has been evaluated by gastroenterology and had endoscopic disimpactions for this problem in the past. 06/10: kept NPO. NGT placed. 06/11: Pt has large bowel movement + flatus. NGT removed. EGD reveals compression of duodenum r/o SMA syndrome 06/12: SB series neg SMA syndrome. Diet advanced. Abx discontinued. Ordered CT abd/pelvis with contrast 06/13: CT A/P was performed 06/14: DId not show SMA syndrome. Patient was deemed stable for discharge on MIralax and Protonix. Discharge Exam - Head Exam Head Exam: ATRAUMATIC, NORMOCEPHALIC - Eye Exam Eye Exam: EOMI, Normal appearance, PERRL Pupil Exam: NORMAL ACCOMODATION, PERRL - Respiratory Exam Respiratory Exam: Clear to PA & Lateral, NORMAL BREATHING PATTERN, UNREMARKABLE - Cardiovascular Exam Cardiovascular Exam: REGULAR RHYTHM, RRR. absent: Diastolic murmur, Systolic Murmur - GI/Abdominal Exam GI & Abdominal Exam: Normal Bowel Sounds, Unremarkable - Neurological Exam Neurological exam: Alert, CN II-XII Intact, Normal Gait, Oriented x3, Reflexes Normal - Psychiatric Exam Psychiatric exam: Normal Affect, Normal Mood - Skin Skin Exam: Dry, Intact, Normal Color, Warm Discharge Plan - Discharge Medications Prescriptions: Pantoprazole [Protonix EC Tab] 20 mg PO 0600 #30 ect Polyethylene Glycol 3350 [Miralax] 17 gm PO BID #60 packet - Follow Up Plan Condition: GOOD Disposition: HOME/ ROUTINE Instructions: Acute Abdomen (Belly Pain), Adult (DC) Additional Instructions: 1. Follow up with PMD DR. Campbell in 3 days. 2. Follow up with Dr. james GI in 1 week. 3. Small frequent meals. 4. avoid constipation. Referrals: Nai James MD [Medical Doctor] - <Hal Lizarraga - Last Filed: 06/15/17 11:53> Provider - Provider Date of Admission: 06/10/17 11:25 Attending physician: Camilo Guillory MD Hospital Course - Lab Results Lab Results: Most Recent Lab Values WBC 6.5 10^3/ul (4.5-11.0) 06/14/17 07:00 RBC 4.71 10^6/uL (3.5-6.1) 06/14/17 07:00 Hgb 14.8 g/dL (12.0-16.0) 06/14/17 07:00 Hct 43.6 % (36.0-48.0) 06/14/17 07:00 MCV 92.6 fl (80.0-105.0) 06/14/17 07:00 MCH 31.4 pg (25.0-35.0) 06/14/17 07:00 MCHC 33.9 g/dl (31.0-37.0) 06/14/17 07:00 RDW 12.3 % (11.5-14.5) 06/14/17 07:00 Plt Count 250 10^3/uL (120.0-450.0) 06/14/17 07:00 MPV 9.8 fl (7.0-11.0) 06/14/17 07:00 Gran % 59.8 % (50.0-68.0) 06/14/17 07:00 Lymph % (Auto) 30.0 % (22.0-35.0) 06/14/17 07:00 [place] % (Auto) 6.1 % (1.0-6.0) H 06/14/17 07:00 Eos % (Auto) 3.5 % (1.5-5.0) 06/14/17 07:00 Baso % (Auto) 0.6 % (0.0-3.0) 06/14/17 07:00 Gran # 3.89 (1.4-6.5) 06/14/17 07:00 Lymph # (Auto) 2.0 (1.2-3.4) 06/14/17 07:00 [place] # (Auto) 0.4 (0.1-0.6) 06/14/17 07:00 Eos # (Auto) 0.2 (0.0-0.7) 06/14/17 07:00 Baso # (Auto) 0.04 K/mm3 (0.0-2.0) 06/14/17 07:00 Neutrophils % (Manual) 88 % (50.0-70.0) H 06/10/17 04:45 Band Neutrophils % 2 % (0-2) 06/10/17 04:45 Lymphocytes % (Manual) 9 % (22.0-35.0) L 06/10/17 04:45 Monocytes % (Manual) TEST NOT PERFORMED 06/10/17 04:45 Basophils % (Manual) 1 % (0.0-1.0) 06/10/17 04:45 Platelet Evaluation Normal (NORMAL) 06/10/17 04:45 PT 11.0 SECONDS (9.4-12.5) 06/10/17 04:45 INR 0.97 (0.93-1.08) 06/10/17 04:45 APTT 28.1 Seconds (25.1-36.5) 06/10/17 04:45 pO2 235 mm/Hg (30-55) H 06/10/17 07:49 VBG pH 7.42 (7.32-7.43) 06/10/17 07:49 VBG pCO2 46.0 (40-60) 06/10/17 07:49 VBG HCO3 29.8 mmol/l (21-28) H 06/10/17 07:49 VBG Total CO2 31.2 mmol.L (22-28) H 06/10/17 07:49 VBG O2 Sat (Calc) 100.0 % (40-65) H 06/10/17 07:49 VBG Base Excess 4.5 mmol/L (0.0-2.0) H 06/10/17 07:49 VBG Potassium 3.7 mmol/L (3.6-5.2) 06/10/17 07:49 Sodium 138.0 mmol/L (132-148) 06/10/17 07:49 Chloride 107.0 mmol/L (98-107) 06/10/17 07:49 Glucose 114 mg/dl (65-105) H 06/10/17 07:49 Lactate 0.9 mmol/L (0.7-2.1) 03 07:49 FiO2 21.0 % 06/10/17 07:49 Sodium 142 mmol/L (132-148) 06/14/17 07:00 Potassium 4.1 mmol/L (3.6-5.0) 06/14/17 07:00 Chloride 103 mmol/L (98-107) 06/14/17 07:00 Carbon Dioxide 29 mmol/L (21-33) 06/14/17 07:00 Anion Gap 14 (10-20) 06/14/17 07:00 BUN 17 mg/dL (7-21) 06/14/17 07:00 Creatinine 0.6 mg/dl (0.7-1.2) L 06/14/17 07:00 Est GFR ( Amer) > 60 06/14/17 07:00 Est GFR (Non-Af Amer) > 60 06/14/17 07:00 Random Glucose 91 mg/dL (70-110) 06/14/17 07:00 Calcium 9.7 mg/dL (8.4-10.5) 06/14/17 07:00 Phosphorus 3.6 mg/dL (2.5-4.5) 06/13/17 08:00 Magnesium 2.5 mg/dL (1.7-2.2) H 06/13/17 08:00 Total Bilirubin 0.5 mg/dL (0.2-1.3) 06/14/17 07:00 AST 35 U/L (14-36) 06/14/17 07:00 ALT 40 U/L (7-56) 06/14/17 07:00 Alkaline Phosphatase 110 U/L (38-126) 06/14/17 07:00 Lactate Dehydrogenase 493 U/L (333-699) 06/10/17 04:45 Total Creatine Kinase 56 U/L (35-230) 06/10/17 04:45 Troponin I < 0.01 ng/mL 06/10/17 04:45 Total Protein 7.1 g/dL (5.8-8.3) 06/14/17 07:00 Albumin 4.1 g/dL (3.0-4.8) 06/14/17 07:00 Globulin 3.0 gm/dL 06/14/17 07:00 Albumin/Globulin Ratio 1.3 (1.1-1.8) 06/14/17 07:00 Amylase 82 U/L (35-125) 06/10/17 04:45 Lipase 309 U/L (23-300) H 06/10/17 04:45 Procalcitonin < 0.05 NG/ML (0.19-0.49) L 06/10/17 12:05 Venous Blood Potassium 3.7 mmol/L (3.6-5.2) 06/10/17 07:49 Urine Color Yellow (YELLOW) 06/10/17 09:30 Urine Appearance Clear (CLEAR) 06/10/17 09:30 Urine pH 7.5 (4.7-8.0) 06/10/17 09:30 Ur Specific [place] 1.015 (1.005-1.035) 06/10/17 09:30 Urine Protein Negative mg/dL (<30 mg/dL) 06/10/17 09:30 Urine Glucose (UA) Negative mg/dL (NEGATIVE) 06/10/17 09:30 Urine Ketones Trace mg/dL (NEGATIVE) H 06/10/17 09:30 Urine Blood Negative (NEGATIVE) 06/10/17 09:30 Urine Nitrate Negative (NEGATIVE) 06/10/17 09:30 Urine Bilirubin Negative (NEGATIVE) 06/10/17 09:30 Urine Urobilinogen 0.2 E.U./dL (<1 E.U./dL) 06/10/17 09:30 Ur Leukocyte Esterase Negative [place]/uL (NEGATIVE) 06/10/17 09:30 Attending/Attestation - Attestation I have personally seen and examined this patient.: Yes I have fully participated in the care of the patient.: Yes I have reviewed all pertinent clinical information, including history, physical exam and plan: Yes Notes (Text): 06/15/17 11:49 attending note; Patient seen and examined with Resident. patient is alert and awake. Not in any distress. Tolerating pure diet. Seen by GI today. Patient is a 51 year old female with history of recurrent Small bowel obstruction, colon polyps, neurogenic bladder, asthma, gastric intestinal metaplasia, Hpylori gastritis (not treated as she could not tolerate the treatment) who was admitted for evaluation of persistent nausea and vomiting secondary to small bowel obstruction vs constipation. CT confirmed findings of distal small bowel obstruction. NG tube was removed yesterday. Lactic acid was normal. 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 CTA is negative for any SMA stenosis. Patient is tolerating diet. Denies any abdominal pain, nausea or vomiting. Patient appears much better in terms of her mood. Denies depression or suicidal ideation. Psych consult appreciated. patient Will be discharged home with close follow-up with PMD and GI. Upon discharge patient will follow up with Dr Wright. diagnosis; Small bowel obstruction Status post endoscopy Stenosis of third part of duodenum
== END 2017-06-14 14:13 | disposition home or self-care (01) | DRG 380 ==
LOC: ED 04:30 → ERH 11:25 → 5RSO 13:16
PROVIDERS: ADMIT Hospitalist; ATTEND Hospitalist
PROC: 0DB68ZX Excision of Stomach, Via Natural or Artificial Opening Endoscopic, Diagnostic (ICD-10-PCS; principal; 2017-06-11 13:30)
DX: K31.5 Obstruction of duodenum (principal); J69.0 Pneumonitis due to inhalation of food and vomit; R47.01 Aphasia; F43.22 Adjustment disorder with anxiety; G80.9 Cerebral palsy, unspecified; J45.909 Unspecified asthma, uncomplicated; K21.9 Gastro-esophageal reflux disease without esophagitis; K25.9 Gastric ulcer, unspecified as acute or chronic, without hemorrhage or perforation; K29.50 Unspecified chronic gastritis without bleeding; N31.9 Neuromuscular dysfunction of bladder, unspecified; N32.81 Overactive bladder; R40.2412 Glasgow coma scale score 13-15, at arrival to emergency department; B96.81 Helicobacter pylori [H. pylori] as the cause of diseases classified elsewhere; Z86.010 Personal history of colon polyps; Z87.11 Personal history of peptic ulcer disease; Z88.8 Allergy status to other drugs, medicaments and biological substances